=== PATIENT | male | born 1970 | race Caucasian/White ===

== ENCOUNTER 2022-03-06 16:36 | Inpatient (IN) | payer OTHER ==
[~2022-03-06] VITALS: Ht 182.9 cm; Wt 72.7 kg
[2022-03-06] MEDS ORDERED: SODIUM CHLORIDE 0.9% 1,000 ML IV ONE ×3 (17:00→20:15)
[2022-03-06 17:54] LABS: BASOPHILS % (AUTO) 0.2 % (0.0-2.0); EOSINOPHILS % (AUTO) 0.7 % (1.0-6.0); HEMATOCRIT 34.8 % (41-53); HEMOGLOBIN 11.6 g/dL (13.5-17.5); LYMPHOCYTES # (AUTO) 0.6 K/uL (1.0-4.8); LYMPHOCYTES % (AUTO) 5.5 % (22.0-44.0); MEAN CORPUSCULAR HEMOGLOBIN 36.2 pg (26.0-34.0); MEAN CORPUSCULAR HGB CONC 33.4 G/dL (31.0-37.0); MEAN CORPUSCULAR VOLUME 108 fL (80-100); MONOCYTES # (AUTO) 0.9 K/uL (0.1-1.0); MONOCYTES % (AUTO) 7.4 % (2.0-9.0); NEUTROPHILS # (AUTO) 10.3 K/uL (1.8-7.7); PLATELET COUNT (AUTO) 326 K/uL (150-450); RED BLOOD CELL COUNT(AUTO) 3.22 MIL/uL (4.50-5.90); RED CELL DISTRIBUTION WIDTH 14.8 % (11.5-14.5)
[2022-03-06 17:55] LABS: NEUTROPHILS % (AUTO) 86.2 % (40.0-70.0)
[2022-03-06 17:56] LABS: COVID AG,FIA SOURCE NASAL SWAB
[2022-03-06 18:08] LABS: ALBUMIN 1.6 g/dL (3.4-5.0); BILIRUBIN,TOTAL 1.6 mg/dL (0.1-1.0); CALCIUM, TOTAL 7.4 mg/dL (8.8-10.5); CREATININE 3.01 mg/dL (0.60-1.30); INR 1.2 (0.9-1.1); PROTHROMBIN TIME 12.5 SEC (9.4-11.6); TOTAL PROTEIN, SERUM 6.4 g/dL (6.4-8.2)
[2022-03-06 18:11] LABS: POTASSIUM 2.6 mmol/L (3.5-5.1)
[2022-03-06] MEDS ORDERED: POTASSIUM CHLORIDE 20 MEQ ER TABLET PO ONE (18:15)
[2022-03-06] MEDS ORDERED: CefTRIAXone 1 GM/DEXTROSE 50 ML IV ONE (18:15)
[2022-03-06] MEDS ORDERED: AZITHROMYCIN 500 MG/NS 250 ML IV ONE (18:15)
[2022-03-06 18:22] LABS: INFLUENZA TYPE A NEGATIVE FOR TYPE A (NEGATIVE); INFLUENZA TYPE B NEGATIVE FOR TYPE B (NEGATIVE)
[2022-03-06] MEDS ORDERED: SODIUM CHLORIDE 0.9% 1,000 ML IV SCH (19:15)
[2022-03-06] MEDS ORDERED: HALOPERIDOL LACTATE 5 MG/ML VIAL IM ONE (22:45)
[2022-03-06] MEDS ORDERED: LORazepam 2 MG/ML VIAL IVP ONE (22:45)
[2022-03-06] MEDS ORDERED: DiphenhydrAMINE HCL 50 MG/ML VIAL IVP ONE (22:45)
[2022-03-07] MEDS ORDERED: HEPARIN SODIUM,PORCINE 5,000 UNITS/ML VIAL SQ SCH
[2022-03-07] MEDS ORDERED: LORazepam 2 MG/ML VIAL IVP ONE (00:45)
[2022-03-07] MEDS ORDERED: LORazepam 2 MG TABLET PO PRN (00:45)
[2022-03-07] MEDS ORDERED: SODIUM CHLORIDE 0.9% 1,000 ML IV ONE (00:50)
[2022-03-07] MEDS ORDERED: PROPOFOL 1000 MG/ISO-OSM 100 ML ONE (00:58)
[2022-03-07] MEDS ORDERED: MIDAZOLAM HCL 2 MG/2 ML VIAL IM PRN (01:00)
[2022-03-07] MEDS: PROPOFOL 1000 MG/ISO-OSM 100 ML IV PRN ×3 (01:00→16:45)
[2022-03-07] MEDS ORDERED: PANTOPRAZOLE SODIUM 40 MG/VIAL IVP ONE (01:15)
[2022-03-07 01:16] LABS: BASOPHILS % (AUTO) 0.1 % (0.0-2.0); EOSINOPHILS % (AUTO) 0.1 % (1.0-6.0); HEMATOCRIT 31.6 % (41-53); HEMOGLOBIN 10.7 g/dL (13.5-17.5); LYMPHOCYTES # (AUTO) 0.9 K/uL (1.0-4.8); LYMPHOCYTES % (AUTO) 5.8 % (22.0-44.0); MEAN CORPUSCULAR HEMOGLOBIN 36.7 pg (26.0-34.0); MEAN CORPUSCULAR HGB CONC 33.9 G/dL (31.0-37.0); MEAN CORPUSCULAR VOLUME 108 fL (80-100); MONOCYTES # (AUTO) 1.5 K/uL (0.1-1.0); MONOCYTES % (AUTO) 9.7 % (2.0-9.0); NEUTROPHILS # (AUTO) 12.7 K/uL (1.8-7.7); NEUTROPHILS % (AUTO) 84.3 % (40.0-70.0); PLATELET COUNT (AUTO) 333 K/uL (150-450); RED BLOOD CELL COUNT(AUTO) 2.92 MIL/uL (4.50-5.90)
[2022-03-07 01:25] LABS: CALCIUM, TOTAL 6.8 mg/dL (8.8-10.5); CREATININE 2.77 mg/dL (0.60-1.30); POTASSIUM 3.2 mmol/L (3.5-5.1)
[2022-03-07 01:27] LABS: ABG BASE EXCESS -8.9 mmol/L (-2.0-3.0); ABG CARBOXYHEMOGLOBIN 0.3 % (0.0-1.5); ABG HCO3 17.7 mmol/L (22.0-26.0); ABG METHEMOGLOBIN 0.4 % (0.0-1.5); ABG OXYGEN SATURATION 90.6 % (95.0-98.0); ABG PCO2 38 mmHg (35-45); ABG PH 7.286 (7.35-7.450); PO2, ARTERIAL BG 72.2 mmHg (88.0-96.0); SOURCE, BLOOD GAS ARTERIAL; TEMPERATURE, FAHRENHEIT, BG 98.6 FAHREN (96.0-98.6)
[2022-03-07 01:28] LABS: O2 DEVICE,BLOOD GAS VENTILATOR (ROOM AIR); PEEP,BG 5 cm H2O; SITE, BLOOD GAS RT BRACHIAL; SPONTANEOUS VT, BG 432 ml; VT, ABG 450 ml
[2022-03-07 01:30] LABS: ALBUMIN 1.4 g/dL (3.4-5.0); BILIRUBIN,DIRECT 0.9 mg/dL (0.00-0.20); BILIRUBIN,TOTAL 1.1 mg/dL (0.1-1.0); TOTAL PROTEIN, SERUM 5.6 g/dL (6.4-8.2)
[2022-03-07] MEDS: NOREPINEPHRINE 8 MG/D5%-WATER 250 ML IV PRN ×2 (01:41→10:39)
[2022-03-07] MEDS: ONDANSETRON HCL 4 MG/2 ML VIAL IVP PRN (01:49)
[2022-03-07] MEDS: FentaNYL CIT 1000MCG/0.9% NACL 100 ML IV PRN ×4 (02:12→18:40)
[2022-03-07] MEDS: PANTOPRAZOLE SODIUM 80 MG in SODIUM CHLORIDE 0.9% 100 ML IV SCH ×3 (03:23→23:12)
[2022-03-07 03:25] LABS: APPEARANCE,URINE HAZY (CLEAR); GLUCOSE, URINE (UA) NEGATIVE (NEGATIVE); KETONES,URINE NEGATIVE (NEGATIVE); LEUKOCYTE ESTERASE ,URINE NEGATIVE (NEGATIVE); NITRATE,URINE NEGATIVE (NEGATIVE); OCCULT BLOOD,URINE NEGATIVE (NEGATIVE); PROTEIN,URINE 30-70 mg/dL (NEGATIVE); SPECIFIC GRAVITIY, URINE 1.027 (1.003-1.030)
[2022-03-07 03:27] LABS: CREATININE,URINE RANDOM 364.6 mg/dL (30.0-125.0)
[2022-03-07] MEDS: 1: MAGNESIUM SULFATE 2 GM, MVI, ADULT NO.1 WITH VIT K 10 ML, THIAMINE 100 MG, FOLIC ACID IV SCH ×10 (03:30→16:48)
[2022-03-07 03:31] LABS: AMPHET/METH SCREEN,URINE NEGATIVE (NEGATIVE); BARBITURATE SCREEN, URINE NEGATIVE (NEGATIVE); BENZODIAZEPINES SCREEN,URINE POSITIVE (NEGATIVE); CANNABINOID SCREEN,URINE POSITIVE (NEGATIVE); COCAINE SCREEN,URINE NEGATIVE (NEGATIVE); METHADONE SCREEN, URINE NEGATIVE (NEGATIVE); OPIATE SCREEN,URINE NEGATIVE (NEGATIVE)
[2022-03-07 03:35] LABS: BILIRUBIN,URINE SMALL (NEGATIVE); PHENCYCLIDINE SCREEN,URINE NEGATIVE (NEGATIVE)
[2022-03-07] MEDS: POTASSIUM CHL 10 MEQ/WATER 50 ML IV SCH ×3 (03:36→05:28)
[2022-03-07 03:57] LABS: RBC,URINE None Seen /HPF (0-2)
[2022-03-07 04:00] LABS: BACTERIA,URINE Few /HPF (None Seen)
[2022-03-07 06:57] LABS: ALBUMIN 1.2 g/dL (3.4-5.0); BILIRUBIN,TOTAL 0.9 mg/dL (0.1-1.0); CALCIUM, TOTAL 6.4 mg/dL (8.8-10.5); CREATININE 2.31 mg/dL (0.60-1.30); MAGNESIUM 1.2 mg/dL (1.80-2.40); PHOSPHORUS 2.6 mg/dL (2.5-4.9); TOTAL PROTEIN, SERUM 5.2 g/dL (6.4-8.2)
[2022-03-07 07:38] LABS: ABG BASE EXCESS -5.9 mmol/L (-2.0-3.0); ABG CARBOXYHEMOGLOBIN 0.2 % (0.0-1.5); ABG HCO3 20.3 mmol/L (22.0-26.0); ABG METHEMOGLOBIN 0.3 % (0.0-1.5); ABG OXYHEMOGLOBIN 98.5 % (94.0-100.0); ABG PCO2 34 mmHg (35-45); ABG PH 7.373 (7.35-7.450); PO2, ARTERIAL BG 162.6 mmHg (88.0-96.0); SITE, BLOOD GAS LFT BRACHIAL; SOURCE, BLOOD GAS ARTERIAL; TEMPERATURE, FAHRENHEIT, BG 97.5 FAHREN (96.0-98.6)
[2022-03-07 07:39] LABS: ABG A-A DIFF O2 517.8 mmHg (10-20.0); O2 DEVICE,BLOOD GAS VENTILATOR (ROOM AIR); PEEP,BG 5 cm H2O; VT, ABG 450 ml
[2022-03-07] MEDS: CHLORHEXIDINE GLUCONATE 0.12% 15 ML UDCUP ORAL RINSE MM SCH ×2 (09:00→23:10)
[2022-03-07] MEDS ORDERED: LORazepam 2 MG/ML VIAL IVP PRN (09:30)
[2022-03-07] MEDS ORDERED: MAGNESIUM SULFATE 1 GM in DEXTROSE 5%-WATER 50 ML IV ONE (10:30)
[2022-03-07 13:05] LABS: ALBUMIN 1.2 g/dL (3.4-5.0); CALCIUM, TOTAL 6.6 mg/dL (8.8-10.5); CREATININE 1.71 mg/dL (0.60-1.30); MAGNESIUM 2.3 mg/dL (1.80-2.40); PHOSPHORUS 2.3 mg/dL (2.5-4.9); POTASSIUM 3.6 mmol/L (3.5-5.1); TOTAL PROTEIN, SERUM 5.2 g/dL (6.4-8.2)
[2022-03-07 13:28] LABS: ABG A-A DIFF O2 471.5 mmHg (10-20.0); ABG BASE EXCESS -11.8 mmol/L (-2.0-3.0); ABG CARBOXYHEMOGLOBIN 0.3 % (0.0-1.5); ABG METHEMOGLOBIN 0.2 % (0.0-1.5); ABG OXYGEN CONTENT 17.2 mL/dL (15.0-23.0); ABG OXYGEN SATURATION 92.5 % (95.0-98.0); ABG PCO2 25 mmHg (35-45); ABG PH 7.368 (7.35-7.450); ABG TOTAL HEMOGLOBIN 13.3 G/dL (12.0-18.0); O2 DEVICE,BLOOD GAS VENTILATOR (ROOM AIR); PEEP,BG 5 cm H2O; SITE, BLOOD GAS LFT BRACHIAL; SOURCE, BLOOD GAS ARTERIAL; TEMPERATURE, FAHRENHEIT, BG 86.5 FAHREN (96.0-98.6); VT, ABG 450 ml
[2022-03-07] MEDS ORDERED: VANCOMYCIN HCL 1.25 GM in DEXTROSE 5%-WATER 250 ML IV ONE (14:30)
[2022-03-07] MEDS ORDERED: PROPOFOL 1000 MG/ISO-OSM 100 ML IV PRN (15:45)
[2022-03-07] MEDS: CefTRIAXone 1 GM/DEXTROSE 50 ML IV SCH (17:35)
[2022-03-07 18:49] LABS: ALANINE AMINOTRANSFERASE 43 U/L (12-78); ALBUMIN 1.1 g/dL (3.4-5.0); ALKALINE PHOSPHATASE 46 U/L (46-116); ANION GAP 15 mmol/L (8-16); ASPARTATE AMINOTRANSFERASE 136 U/L (15-37); CALCIUM, TOTAL 6.5 mg/dL (8.8-10.5); CARBON DIOXIDE 18 mmol/L (22-29); CHLORIDE 108 mmol/L (98-107); GLOMERULAR FILTR. RATE CALC 46 mL/min (>60); GLUCOSE,RANDOM 192 mg/dL (70-110); SODIUM SERUM 141 mmol/L (136-145); TOTAL PROTEIN, SERUM 4.7 g/dL (6.4-8.2); UREA NITROGEN, BLOOD 55 mg/dL (7-18)
[2022-03-07 18:52] LABS: ACETAMINOPHEN < 2 mcg/mL (10-30); POTASSIUM 2.8 mmol/L (3.5-5.1)
[2022-03-07] MEDS ORDERED: AZITHROMYCIN 500 MG/NS 250 ML IV SCH (19:00)
[2022-03-07] MEDS: VANCOMYCIN HCL 500 MG in DEXTROSE 5%-WATER 100 ML IV SCH (20:11)
[2022-03-07 21:55] VITALS: BP 79/41
[2022-03-08] VITALS: BP 97/67
[2022-03-08] MEDS: FentaNYL CIT 1000MCG/0.9% NACL 100 ML IV PRN ×2 (00:24→08:25)
[2022-03-08] MEDS: NOREPINEPHRINE 8 MG/D5%-WATER 250 ML IV PRN ×3 (00:25→22:38)
[2022-03-08 01:35] LABS: ALBUMIN 1.3 g/dL (3.4-5.0); BILIRUBIN,TOTAL 1.4 mg/dL (0.1-1.0); CALCIUM, TOTAL 6.4 mg/dL (8.8-10.5); CREATININE 1.59 mg/dL (0.60-1.30); MAGNESIUM 1.9 mg/dL (1.80-2.40); PHOSPHORUS 2.9 mg/dL (2.5-4.9); POTASSIUM 3.6 mmol/L (3.5-5.1); TOTAL PROTEIN, SERUM 4.7 g/dL (6.4-8.2)
[2022-03-08 02:40] LABS: ABG BASE EXCESS -7.7 mmol/L (-2.0-3.0); ABG CARBOXYHEMOGLOBIN 0.3 % (0.0-1.5); ABG HCO3 18.7 mmol/L (22.0-26.0); ABG METHEMOGLOBIN 0.3 % (0.0-1.5); ABG OXYGEN CONTENT 17.6 mL/dL (15.0-23.0); ABG OXYGEN SATURATION 97.8 % (95.0-98.0); ABG OXYHEMOGLOBIN 97.2 % (94.0-100.0); ABG PCO2 38 mmHg (35-45); ABG PH 7.311 (7.35-7.450); ABG TOTAL HEMOGLOBIN 12.8 G/dL (12.0-18.0); PO2, ARTERIAL BG 103.1 mmHg (88.0-96.0); SOURCE, BLOOD GAS ARTERIAL; TEMPERATURE, FAHRENHEIT, BG 95.9 FAHREN (96.0-98.6)
[2022-03-08 02:43] LABS: O2 DEVICE,BLOOD GAS VENTILATOR (ROOM AIR); PEEP,BG 5 cm H2O; SITE, BLOOD GAS LFT BRACHIAL; VT, ABG 450 ml
[2022-03-08 02:47] LABS: APPEARANCE,URINE TURBID (CLEAR); BILIRUBIN,URINE NEGATIVE (NEGATIVE); GLUCOSE, URINE (UA) TRACE mg/dL (NEGATIVE); KETONES,URINE NEGATIVE (NEGATIVE); LEUKOCYTE ESTERASE ,URINE NEGATIVE (NEGATIVE); NITRATE,URINE NEGATIVE (NEGATIVE); OCCULT BLOOD,URINE SMALL (NEGATIVE); PROTEIN,URINE 30-70 mg/dL (NEGATIVE); SPECIFIC GRAVITIY, URINE 1.017 (1.003-1.030)
[2022-03-08 02:50] LABS: CREATININE,URINE RANDOM 70.8 mg/dL (30.0-125.0)
[2022-03-08 02:51] LABS: SODIUM,URINE RANDOM 32 mmol/l (20-110); UREA NITROGEN,URINE RANDOM 884 mg/dL (350-1000)
[2022-03-08 03:00] LABS: BACTERIA,URINE None Seen /HPF (None Seen); WBC,URINE 0-2 /HPF (0-5)
[2022-03-08 03:21] LABS: GLUCOSE,POINT OF CARE 96 MG/DL (70-110)
[2022-03-08 04:00] VITALS: BP 96/57
[2022-03-08] MEDS ORDERED: SODIUM CHLORIDE 0.9% 250 ML IV ONE (04:37)
[2022-03-08] MEDS: 1: MAGNESIUM SULFATE 2 GM, MVI, ADULT NO.1 WITH VIT K 10 ML, THIAMINE 100 MG, FOLIC ACID IV SCH ×5 (04:47)
[2022-03-08] MEDS ORDERED: CLINDAMYCIN 600 MG/D5% WATER 50 ML IV ONE (06:00)
[2022-03-08] MEDS: PHENYLEPHRINE 200 MG/D5%-WATER 250 ML IV PRN ×2 (06:24→20:46)
[2022-03-08 06:41] LABS: GLUCOMETER DEV NAME(LOC) AHU.; GLUCOSE,POINT OF CARE 86 MG/DL (70-110)
[2022-03-08 06:49] LABS: BASOPHILS % (AUTO) 0.1 % (0.0-2.0); HEMATOCRIT 40.2 % (41-53); HEMOGLOBIN 13.4 g/dL (13.5-17.5); LYMPHOCYTES # (AUTO) 0.4 K/uL (1.0-4.8); LYMPHOCYTES % (AUTO) 3.9 % (22.0-44.0); MEAN CORPUSCULAR HGB CONC 33.3 G/dL (31.0-37.0); MEAN CORPUSCULAR VOLUME 111 fL (80-100); MONOCYTES # (AUTO) 0.2 K/uL (0.1-1.0); MONOCYTES % (AUTO) 2.1 % (2.0-9.0); NEUTROPHILS # (AUTO) 9.6 K/uL (1.8-7.7); PLATELET COUNT (AUTO) 400 K/uL (150-450); RED BLOOD CELL COUNT(AUTO) 3.62 MIL/uL (4.50-5.90); RED CELL DISTRIBUTION WIDTH 15.7 % (11.5-14.5)
[2022-03-08 06:51] LABS: NEUTROPHILS % (AUTO) 92.9 % (40.0-70.0)
[2022-03-08 07:00] LABS: INR 1.2 (0.9-1.1); PROTHROMBIN TIME 12.3 SEC (9.4-11.6)
[2022-03-08] MEDS ORDERED: LORazepam 2 MG TABLET PO PRN (07:00)
[2022-03-08 07:01] LABS: CREATININE 1.62 mg/dL (0.60-1.30); PHOSPHORUS 2.8 mg/dL (2.5-4.9); POTASSIUM 3.2 mmol/L (3.5-5.1)
[2022-03-08 08:00] VITALS: BP 89/55
[2022-03-08] MEDS ORDERED: POTASSIUM CHLORIDE 10% 40 MEQ/30 ML LIQUID UDCUP NG ONE (08:00)
[2022-03-08] MEDS: VANCOMYCIN HCL 500 MG in DEXTROSE 5%-WATER 100 ML IV SCH (08:23)
[2022-03-08] MEDS: PANTOPRAZOLE SODIUM 80 MG in SODIUM CHLORIDE 0.9% 100 ML IV SCH ×2 (08:30→19:53)
[2022-03-08] MEDS ORDERED: LORazepam 2 MG TABLET PO SCH (09:00)
[2022-03-08] MEDS ORDERED: POTASSIUM CHL 10 MEQ/WATER 50 ML IV ONE (09:15)
[2022-03-08] MEDS: SODIUM CHLORIDE 0.9% 1,000 ML IV SCH ×2 (09:19→13:00)
[2022-03-08] MEDS: CHLORHEXIDINE GLUCONATE 0.12% 15 ML UDCUP ORAL RINSE MM SCH ×2 (09:28→20:46)
[2022-03-08] MEDS: LevETIRAcetam 500 MG in DEXTROSE 5%-WATER 100 ML IV SCH ×2 (10:30→22:33)
[2022-03-08 12:00] VITALS: BP 97/48
[2022-03-08] MEDS: ACETAMINOPHEN 325 MG TABLET PO PRN (12:32)
[2022-03-08] MEDS ORDERED: DEXTROSE 50%-WATER 25 GM/50 ML SYRINGE IVP ONE (13:41)
[2022-03-08] MEDS ORDERED: INSULIN LISPRO 100 UNITS/ML SQ PRN (14:00)
[2022-03-08] MEDS ORDERED: DEXTROSE 50%-WATER 25 GM/50 ML SYRINGE IVP PRN (14:00)
[2022-03-08 14:03] LABS: ABG BASE EXCESS -9.3 mmol/L (-2.0-3.0); ABG CARBOXYHEMOGLOBIN 0.3 % (0.0-1.5); ABG HCO3 17.6 mmol/L (22.0-26.0); ABG METHEMOGLOBIN 0.3 % (0.0-1.5); ABG OXYGEN CONTENT 15.5 mL/dL (15.0-23.0); ABG OXYGEN SATURATION 95.2 % (95.0-98.0); ABG OXYHEMOGLOBIN 94.6 % (94.0-100.0); ABG PCO2 37 mmHg (35-45); ABG PH 7.288 (7.35-7.450); ABG TOTAL HEMOGLOBIN 11.6 G/dL (12.0-18.0); PO2, ARTERIAL BG 87.8 mmHg (88.0-96.0); SOURCE, BLOOD GAS ARTERIAL; TEMPERATURE, FAHRENHEIT, BG 100.9 FAHREN (96.0-98.6)
[2022-03-08 14:06] LABS: ABG A-A DIFF O2 512.9 mmHg (10-20.0); O2 DEVICE,BLOOD GAS VENTILATOR (ROOM AIR); PEEP,BG 8 cm H2O; SITE, BLOOD GAS LFT BRACHIAL; VT, ABG 450 ml
[2022-03-08 14:07] LABS: SPONTANEOUS VT, BG 580 ml
[2022-03-08 16:00] VITALS: BP 94/56
[2022-03-08] MEDS ORDERED: HEPARIN SODIUM,PORCINE 1,000 UNITS/ML VIAL ONE (17:18)
[2022-03-08] MEDS ORDERED: EPINEPHrine 1:10,000 [1 MG/10 ML] SYRINGE IVP ONE (17:23)
[2022-03-08] MEDS ORDERED: 0.9% SODIUM CHLORIDE 1,000 ML BAG IV ONE (17:23)
[2022-03-08 17:28] LABS: CALCIUM, TOTAL 6.5 mg/dL (8.8-10.5); CREATININE 1.88 mg/dL (0.60-1.30); POTASSIUM 3.5 mmol/L (3.5-5.1)
[2022-03-08 18:06] LABS: LEGIONELLA PNEUMO AG URINE Negative (Negative); S PNEUMO SOURCE Urine; STREP PNEUMONIAE AG URINE Positive (Negative)
[2022-03-08] MEDS: PROPOFOL 1000 MG/ISO-OSM 100 ML IV PRN (18:11)
[2022-03-08] MEDS: CefTRIAXone 1 GM/DEXTROSE 50 ML IV SCH (18:15)
[2022-03-08] MEDS: DEXTROSE 5%-0.9% SODIUM CHL 1,000 ML IV SCH (19:48)
[2022-03-08] MEDS: VANCOMYCIN HCL 750 MG in DEXTROSE 5%-WATER 250 ML IV SCH (19:53)
[2022-03-08 20:00] VITALS: BP 93/52
[2022-03-09] VITALS: BP 108/65
[2022-03-09 00:41] LABS: GLUCOMETER DEV NAME(LOC) AHU.; GLUCOSE,POINT OF CARE 103 MG/DL (70-110)
[2022-03-09 00:41] LABS: GLUCOMETER DEV NAME(LOC) AHU.; GLUCOSE,POINT OF CARE 144 MG/DL (70-110)
[2022-03-09 00:41] LABS: GLUCOMETER DEV NAME(LOC) AHU.; GLUCOSE,POINT OF CARE 68 MG/DL (70-110)
[2022-03-09] MEDS: FentaNYL CIT 1000MCG/0.9% NACL 100 ML IV PRN ×2 (01:31→19:31)
[2022-03-09 01:51] LABS: GLUCOSE,POINT OF CARE 116 MG/DL (70-110)
[2022-03-09 04:00] VITALS: BP 118/71
[2022-03-09] MEDS ORDERED: SODIUM CHLORIDE 0.9% 250 ML IV ONE (04:35)
[2022-03-09] MEDS: PROPOFOL 1000 MG/ISO-OSM 100 ML IV PRN (04:38)
[2022-03-09] MEDS: DEXTROSE 5%-0.9% SODIUM CHL 1,000 ML IV SCH ×2 (05:10→15:58)
[2022-03-09] MEDS: PANTOPRAZOLE SODIUM 80 MG in SODIUM CHLORIDE 0.9% 100 ML IV SCH ×2 (05:10→16:03)
[2022-03-09] MEDS: NOREPINEPHRINE 8 MG/D5%-WATER 250 ML IV PRN ×3 (05:11→19:30)
[2022-03-09 06:20] LABS: HEMATOCRIT 31.7 % (41-53); HEMOGLOBIN 10.6 g/dL (13.5-17.5); MEAN CORPUSCULAR HEMOGLOBIN 36.7 pg (26.0-34.0); MEAN CORPUSCULAR HGB CONC 33.5 G/dL (31.0-37.0); MEAN CORPUSCULAR VOLUME 110 fL (80-100); PLATELET COUNT (AUTO) 317 K/uL (150-450); RED BLOOD CELL COUNT(AUTO) 2.89 MIL/uL (4.50-5.90); RED CELL DISTRIBUTION WIDTH 15.6 % (11.5-14.5)
[2022-03-09 06:32] LABS: BILIRUBIN,TOTAL 0.9 mg/dL (0.1-1.0); CALCIUM, TOTAL 6.5 mg/dL (8.8-10.5); CREATININE 2.13 mg/dL (0.60-1.30); MAGNESIUM 1.5 mg/dL (1.80-2.40); PHOSPHORUS 2.8 mg/dL (2.5-4.9); POTASSIUM 3.2 mmol/L (3.5-5.1); TOTAL PROTEIN, SERUM 4.7 g/dL (6.4-8.2)
[2022-03-09] MEDS: PHENYLEPHRINE 200 MG/D5%-WATER 250 ML IV PRN (07:12)
[2022-03-09 08:00] VITALS: BP 122/74
[2022-03-09 08:01] LABS: BAND NEUTROPHILS % (MANUAL) 37 % (0-5); LYMPHOCYTES % (MANUAL) 9 % (22-44); MONOCYTES % (MANUAL) 1 % (2-9); SEGMENTED NEUTROPHILS % 53 % (40-70)
[2022-03-09] MEDS ORDERED: MAGNESIUM OXIDE 400 MG TABLET NG ONE (08:15)
[2022-03-09] MEDS ORDERED: MAGNESIUM SULFATE 1 GM in DEXTROSE 5%-WATER 50 ML IV ONE (08:15)
[2022-03-09] MEDS ORDERED: POTASSIUM CHL 10 MEQ/WATER 50 ML IV ONE (08:15)
[2022-03-09] MEDS ORDERED: POTASSIUM CHLORIDE 10% 40 MEQ/30 ML LIQUID UDCUP NG ONE (08:15)
[2022-03-09] MEDS: CHLORHEXIDINE GLUCONATE 0.12% 15 ML UDCUP ORAL RINSE MM SCH ×2 (08:41→21:59)
[2022-03-09] MEDS: ETHYL ALCOHOL 62% ANTISEPTIC NASAL SANITIZER 0.6 ML AMPUL NASAL SCH ×2 (08:41→21:59)
[2022-03-09] MEDS: VANCOMYCIN HCL 750 MG in DEXTROSE 5%-WATER 250 ML IV SCH (08:43)
[2022-03-09 08:47] LABS: GLUCOMETER DEV NAME(LOC) AHU.; GLUCOSE,POINT OF CARE 116 MG/DL (70-110)
[2022-03-09] MEDS: LevETIRAcetam 500 MG in DEXTROSE 5%-WATER 100 ML IV SCH ×2 (09:43→22:00)
[2022-03-09] MEDS ORDERED: VANCOMYCIN 1GM/WATER(PEG/NADA) 200 ML IV PRN (10:30)
[2022-03-09 12:00] VITALS: BP 105/63
[2022-03-09 13:07] LABS: GLUCOMETER DEV NAME(LOC) AHU.; GLUCOSE,POINT OF CARE 106 MG/DL (70-110)
[2022-03-09 16:00] VITALS: BP_SYST 114; BP_SYST 122; BP_DIAS 69; BP_DIAS 74
[2022-03-09] MEDS: CefTRIAXone 1 GM/DEXTROSE 50 ML IV SCH (18:03)
[2022-03-09 20:00] VITALS: BP 101/58
[2022-03-09 20:01] LABS: CALCIUM, TOTAL 6.5 mg/dL (8.8-10.5); CREATININE 2.07 mg/dL (0.60-1.30); MAGNESIUM 1.5 mg/dL (1.80-2.40); PHOSPHORUS 2.7 mg/dL (2.5-4.9); POTASSIUM 3.4 mmol/L (3.5-5.1)
[2022-03-10] VITALS: BP 107/63
[2022-03-10] MEDS ORDERED: MAGNESIUM SULFATE 1 GM in DEXTROSE 5%-WATER 50 ML IV ONE (01:00)
[2022-03-10 04:00] VITALS: BP 98/61
[2022-03-10] MEDS: PHENYLEPHRINE 200 MG/D5%-WATER 250 ML IV PRN ×2 (04:31→17:19)
[2022-03-10] MEDS: DEXTROSE 5%-0.9% SODIUM CHL 1,000 ML IV SCH (04:32)
[2022-03-10] MEDS: NOREPINEPHRINE 8 MG/D5%-WATER 250 ML IV PRN ×3 (04:43→20:38)
[2022-03-10] MEDS: PANTOPRAZOLE SODIUM 80 MG in SODIUM CHLORIDE 0.9% 100 ML IV SCH (05:33)
[2022-03-10] MEDS ORDERED: LORazepam 1 MG TABLET PO PRN (07:00)
[2022-03-10 07:06] LABS: GLUCOSE,POINT OF CARE 96 MG/DL (70-110)
[2022-03-10 07:06] LABS: GLUCOSE,POINT OF CARE 97 MG/DL (70-110)
[2022-03-10 07:47] LABS: BASOPHILS % (AUTO) 0.3 % (0.0-2.0); EOSINOPHILS % (AUTO) 0.7 % (1.0-6.0); HEMATOCRIT 34.3 % (41-53); HEMOGLOBIN 11.3 g/dL (13.5-17.5); LYMPHOCYTES # (AUTO) 0.5 K/uL (1.0-4.8); LYMPHOCYTES % (AUTO) 1.9 % (22.0-44.0); MEAN CORPUSCULAR HEMOGLOBIN 36.3 pg (26.0-34.0); MEAN CORPUSCULAR HGB CONC 32.9 G/dL (31.0-37.0); MEAN CORPUSCULAR VOLUME 110 fL (80-100); MONOCYTES # (AUTO) 0.7 K/uL (0.1-1.0); MONOCYTES % (AUTO) 2.8 % (2.0-9.0); NEUTROPHILS # (AUTO) 23.7 K/uL (1.8-7.7); PLATELET COUNT (AUTO) 267 K/uL (150-450); RED BLOOD CELL COUNT(AUTO) 3.11 MIL/uL (4.50-5.90); RED CELL DISTRIBUTION WIDTH 15.7 % (11.5-14.5)
[2022-03-10 07:53] LABS: NEUTROPHILS % (AUTO) 94.3 % (40.0-70.0)
[2022-03-10 08:00] VITALS: BP 88/49
[2022-03-10] MEDS: CHLORHEXIDINE GLUCONATE 0.12% 15 ML UDCUP ORAL RINSE MM SCH ×2 (08:39→21:59)
[2022-03-10] MEDS: ETHYL ALCOHOL 62% ANTISEPTIC NASAL SANITIZER 0.6 ML AMPUL NASAL SCH ×2 (08:39→21:59)
[2022-03-10] MEDS: PROPOFOL 1000 MG/ISO-OSM 100 ML IV PRN ×2 (08:40→20:29)
[2022-03-10 08:45] LABS: CALCIUM, TOTAL 7.1 mg/dL (8.8-10.5); CREATININE 2.07 mg/dL (0.60-1.30); MAGNESIUM 1.6 mg/dL (1.80-2.40); PHOSPHORUS 3.4 mg/dL (2.5-4.9); POTASSIUM 3.7 mmol/L (3.5-5.1); VANCOMYCIN,RANDOM 19.6 mcg/mL (25.0-50.0)
[2022-03-10] MEDS ORDERED: LORazepam 1 MG TABLET PO SCH (09:00)
[2022-03-10] MEDS: ACETAMINOPHEN 325 MG TABLET PO PRN (09:35)
[2022-03-10] MEDS: LevETIRAcetam 500 MG in DEXTROSE 5%-WATER 100 ML IV SCH ×2 (09:35→22:00)
[2022-03-10] MEDS: METOCLOPRAMIDE HCL 5 MG/ML 2 ML VIAL IVP SCH ×2 (10:25→21:59)
[2022-03-10] MEDS ORDERED: VANCOMYCIN 1GM/WATER(PEG/NADA) 200 ML IV ONE (11:15)
[2022-03-10] MEDS: ALBUMIN HUMAN 25%-12.5GM/50ML 50 ML IV SCH ×3 (11:21→23:45)
[2022-03-10 12:00] VITALS: BP 111/71
[2022-03-10] MEDS: FentaNYL CIT 1000MCG/0.9% NACL 100 ML IV PRN ×2 (12:35→20:37)
[2022-03-10] MEDS ORDERED: MAGNESIUM SULFATE 2 GM/WATER 50 ML IV ONE (12:45)
[2022-03-10] MEDS: SODIUM BICARBONATE 75 MEQ in DEXTROSE 5%-WATER 1,000 ML IV SCH (13:47)
[2022-03-10 16:00] VITALS: BP 94/58
[2022-03-10] MEDS: VASOPRESSIN 40 UNITS in DEXTROSE 5%-WATER 98 ML IV PRN (17:16)
[2022-03-10] MEDS: CefTRIAXone 1 GM/DEXTROSE 50 ML IV SCH (17:17)
[2022-03-10 20:00] VITALS: BP 123/76
[2022-03-10] MEDS: PANTOPRAZOLE SODIUM 40 MG/VIAL IVP SCH (21:59)
[2022-03-10] MEDS ORDERED: SODIUM CHLORIDE 0.9% 250 ML IV ONE (22:08)
[2022-03-10 23:56] LABS: GLUCOSE,POINT OF CARE 74 MG/DL (70-110)
[2022-03-11] VITALS: BP 92/58
[2022-03-11 00:46] LABS: GLUCOSE,POINT OF CARE 117 MG/DL (70-110)
[2022-03-11 00:46] LABS: GLUCOSE,POINT OF CARE 150 MG/DL (70-110)
[2022-03-11 00:46] LABS: GLUCOSE,POINT OF CARE 65 MG/DL (70-110)
[2022-03-11 04:00] VITALS: BP 97/64
[2022-03-11] MEDS: PROPOFOL 1000 MG/ISO-OSM 100 ML IV PRN (05:19)
[2022-03-11] MEDS: NOREPINEPHRINE 8 MG/D5%-WATER 250 ML IV PRN ×3 (05:19→19:15)
[2022-03-11 05:44] LABS: BASOPHILS % (AUTO) 0.2 % (0.0-2.0); HEMATOCRIT 28.9 % (41-53); HEMOGLOBIN 9.6 g/dL (13.5-17.5); LYMPHOCYTES # (AUTO) 0.5 K/uL (1.0-4.8); MEAN CORPUSCULAR HEMOGLOBIN 35.7 pg (26.0-34.0); MEAN CORPUSCULAR HGB CONC 33.1 G/dL (31.0-37.0); MEAN CORPUSCULAR VOLUME 108 fL (80-100); MONOCYTES # (AUTO) 0.2 K/uL (0.1-1.0); MONOCYTES % (AUTO) 0.8 % (2.0-9.0); NEUTROPHILS # (AUTO) 24.9 K/uL (1.8-7.7); PLATELET COUNT (AUTO) 189 K/uL (150-450); RED BLOOD CELL COUNT(AUTO) 2.68 MIL/uL (4.50-5.90); RED CELL DISTRIBUTION WIDTH 15.5 % (11.5-14.5)
[2022-03-11] MEDS: ALBUMIN HUMAN 25%-12.5GM/50ML 50 ML IV SCH ×4 (05:57→23:15)
[2022-03-11 06:01] LABS: ALBUMIN 1.2 g/dL (3.4-5.0); BILIRUBIN,TOTAL 1.3 mg/dL (0.1-1.0); C-REACTIVE PROTEIN QUANT 19.8 mg/dL (0.00-0.30); CALCIUM, TOTAL 7.3 mg/dL (8.8-10.5); CREATININE 1.88 mg/dL (0.60-1.30); MAGNESIUM 1.6 mg/dL (1.80-2.40); PHOSPHORUS 4.8 mg/dL (2.5-4.9); POTASSIUM 3.4 mmol/L (3.5-5.1); TOTAL PROTEIN, SERUM 4.2 g/dL (6.4-8.2)
[2022-03-11 06:06] LABS: GLUCOSE,POINT OF CARE 106 MG/DL (70-110)
[2022-03-11 06:06] LABS: GLUCOSE,POINT OF CARE 105 MG/DL (70-110)
[2022-03-11] MEDS ORDERED: LORazepam 1 MG TABLET PO PRN (07:00)
[2022-03-11 08:00] VITALS: BP 106/67
[2022-03-11] MEDS ORDERED: MAGNESIUM SULFATE 2 GM/WATER 50 ML IV ONE (08:15)
[2022-03-11] MEDS: LevETIRAcetam 500 MG in DEXTROSE 5%-WATER 100 ML IV SCH ×2 (08:42→22:15)
[2022-03-11] MEDS: VANCOMYCIN 1GM/WATER(PEG/NADA) 200 ML IV SCH (08:42)
[2022-03-11] MEDS: ETHYL ALCOHOL 62% ANTISEPTIC NASAL SANITIZER 0.6 ML AMPUL NASAL SCH ×2 (08:45→20:57)
[2022-03-11] MEDS: PANTOPRAZOLE SODIUM 40 MG/VIAL IVP SCH ×2 (08:45→20:56)
[2022-03-11] MEDS: CHLORHEXIDINE GLUCONATE 0.12% 15 ML UDCUP ORAL RINSE MM SCH ×2 (08:45→20:55)
[2022-03-11] MEDS: METOCLOPRAMIDE HCL 5 MG/ML 2 ML VIAL IVP SCH ×2 (08:45→20:56)
[2022-03-11] MEDS ORDERED: SODIUM CHLORIDE 0.9% 250 ML IV ONE ×2 (08:50→23:12)
[2022-03-11] MEDS: VASOPRESSIN 40 UNITS in DEXTROSE 5%-WATER 98 ML IV PRN (09:02)
[2022-03-11] MEDS: SODIUM BICARBONATE 75 MEQ in DEXTROSE 5%-WATER 1,000 ML IV SCH (10:55)
[2022-03-11] MEDS: MetroNIDAZOLE 500 MG/NACL 100 ML IV SCH ×2 (10:55→17:42)
[2022-03-11] MEDS: AZITHROMYCIN 500 MG/NS 250 ML IV SCH (11:17)
[2022-03-11 12:00] VITALS: BP 95/57
[2022-03-11] MEDS: HYDROCORTISONE SOD SUCC 100 MG/2 ML VIAL IVP SCH ×3 (12:22→23:16)
[2022-03-11 16:00] VITALS: BP 105/64
[2022-03-11] MEDS: CefTRIAXone SODIUM 2 GM in DEXTROSE 5%-WATER 50 ML IV SCH (17:42)
[2022-03-11 18:42] LABS: CALCIUM, TOTAL 7.6 mg/dL (8.8-10.5); CREATININE 1.79 mg/dL (0.60-1.30); MAGNESIUM 1.8 mg/dL (1.80-2.40); PHOSPHORUS 5.1 mg/dL (2.5-4.9); POTASSIUM 3.4 mmol/L (3.5-5.1)
[2022-03-11 20:00] VITALS: BP 116/72
[2022-03-11] MEDS: ACETAMINOPHEN 325 MG TABLET PO PRN (20:56)
[2022-03-11 23:36] LABS: GLUCOSE,POINT OF CARE 108 MG/DL (70-110)
[2022-03-11 23:36] LABS: GLUCOSE,POINT OF CARE 78 MG/DL (70-110)
[2022-03-12] VITALS: BP 117/76
[2022-03-12 00:01] LABS: GLUCOSE,POINT OF CARE 118 MG/DL (70-110)
[2022-03-12] MEDS: VASOPRESSIN 40 UNITS in DEXTROSE 5%-WATER 98 ML IV PRN (00:49)
[2022-03-12] MEDS: MetroNIDAZOLE 500 MG/NACL 100 ML IV SCH ×3 (01:38→17:51)
[2022-03-12] MEDS: PROPOFOL 1000 MG/ISO-OSM 100 ML IV PRN ×2 (02:56→10:27)
[2022-03-12] MEDS: NOREPINEPHRINE 8 MG/D5%-WATER 250 ML IV PRN (03:44)
[2022-03-12 04:00] VITALS: BP 112/71
[2022-03-12] MEDS: HYDROCORTISONE SOD SUCC 100 MG/2 ML VIAL IVP SCH ×4 (05:44→23:05)
[2022-03-12] MEDS: ALBUMIN HUMAN 25%-12.5GM/50ML 50 ML IV SCH ×4 (05:44→23:02)
[2022-03-12 05:48] LABS: BASOPHILS % (AUTO) 0.2 % (0.0-2.0); EOSINOPHILS % (AUTO) 0 % (1.0-6.0); HEMATOCRIT 25.3 % (41-53); HEMOGLOBIN 8.6 g/dL (13.5-17.5); LYMPHOCYTES # (AUTO) 0.2 K/uL (1.0-4.8); LYMPHOCYTES % (AUTO) 0.9 % (22.0-44.0); MEAN CORPUSCULAR HEMOGLOBIN 36.4 pg (26.0-34.0); MEAN CORPUSCULAR HGB CONC 34.1 G/dL (31.0-37.0); MEAN CORPUSCULAR VOLUME 107 fL (80-100); MONOCYTES # (AUTO) 0.4 K/uL (0.1-1.0); MONOCYTES % (AUTO) 1.5 % (2.0-9.0); NEUTROPHILS # (AUTO) 24.9 K/uL (1.8-7.7); PLATELET COUNT (AUTO) 168 K/uL (150-450); RED BLOOD CELL COUNT(AUTO) 2.37 MIL/uL (4.50-5.90); RED CELL DISTRIBUTION WIDTH 15.3 % (11.5-14.5)
[2022-03-12 05:59] LABS: ALBUMIN 1.6 g/dL (3.4-5.0); BILIRUBIN,TOTAL 1.5 mg/dL (0.1-1.0); CALCIUM, TOTAL 7.9 mg/dL (8.8-10.5); CREATININE 1.74 mg/dL (0.60-1.30); POTASSIUM 3.3 mmol/L (3.5-5.1); TOTAL PROTEIN, SERUM 4.8 g/dL (6.4-8.2); VANCOMYCIN,RANDOM 21.3 mcg/mL (25.0-50.0)
[2022-03-12 06:09] LABS: NEUTROPHILS % (AUTO) 97.4 % (40.0-70.0)
[2022-03-12 06:11] LABS: GLUCOSE,POINT OF CARE 105 MG/DL (70-110)
[2022-03-12 08:00] VITALS: BP 122/75
[2022-03-12 08:04] LABS: MAGNESIUM 1.7 mg/dL (1.80-2.40)
[2022-03-12] MEDS: VANCOMYCIN 1GM/WATER(PEG/NADA) 200 ML IV SCH (08:45)
[2022-03-12] MEDS: PANTOPRAZOLE SODIUM 40 MG/VIAL IVP SCH ×2 (08:46→20:44)
[2022-03-12] MEDS: SODIUM BICARBONATE 75 MEQ in DEXTROSE 5%-WATER 1,000 ML IV SCH (08:46)
[2022-03-12] MEDS: METOCLOPRAMIDE HCL 5 MG/ML 2 ML VIAL IVP SCH ×2 (08:47→20:44)
[2022-03-12] MEDS: CHLORHEXIDINE GLUCONATE 0.12% 15 ML UDCUP ORAL RINSE MM SCH ×2 (08:47→20:44)
[2022-03-12] MEDS: ETHYL ALCOHOL 62% ANTISEPTIC NASAL SANITIZER 0.6 ML AMPUL NASAL SCH ×2 (08:49→20:45)
[2022-03-12] MEDS ORDERED: POTASSIUM CHL 10 MEQ/WATER 50 ML IV ONE (09:30)
[2022-03-12] MEDS ORDERED: MAGNESIUM SULFATE 1 GM in DEXTROSE 5%-WATER 50 ML IV ONE (09:30)
[2022-03-12] MEDS: LevETIRAcetam 500 MG in DEXTROSE 5%-WATER 100 ML IV SCH ×2 (09:49→22:47)
[2022-03-12] MEDS: AZITHROMYCIN 500 MG/NS 250 ML IV SCH (10:26)
[2022-03-12 12:00] VITALS: BP 101/60
[2022-03-12] MEDS ORDERED: *CLINICAL-LEVOFLOXACIN IVPB DOSING CLINICAL ONE (12:00)
[2022-03-12] MEDS ORDERED: LEVOFLOXACIN 750 MG/D5% WATER 150 ML IV SCH (13:00)
[2022-03-12 13:36] LABS: GLUCOSE,POINT OF CARE 80 MG/DL (70-110)
[2022-03-12 15:57] LABS: CREATININE 1.64 mg/dL (0.60-1.30); MAGNESIUM 1.7 mg/dL (1.80-2.40); POTASSIUM 3.2 mmol/L (3.5-5.1)
[2022-03-12 16:00] VITALS: BP 114/67
[2022-03-12] MEDS: CefTRIAXone SODIUM 2 GM in DEXTROSE 5%-WATER 50 ML IV SCH (17:51)
[2022-03-12] MEDS: POTASSIUM CHL 10 MEQ/WATER 50 ML IV SCH ×2 (19:58→20:44)
[2022-03-12 20:00] VITALS: BP 104/59
[2022-03-12 21:41] LABS: GLUCOSE,POINT OF CARE 78 MG/DL (70-110)
[2022-03-13] VITALS: BP 91/53
[2022-03-13] MEDS: PROPOFOL 1000 MG/ISO-OSM 100 ML IV PRN ×3 (00:42→23:42)
[2022-03-13] MEDS: FentaNYL CIT 1000MCG/0.9% NACL 100 ML IV PRN ×2 (00:44→21:32)
[2022-03-13] MEDS: NOREPINEPHRINE 8 MG/D5%-WATER 250 ML IV PRN (00:45)
[2022-03-13] MEDS: MetroNIDAZOLE 500 MG/NACL 100 ML IV SCH ×3 (02:08→17:43)
[2022-03-13 04:00] VITALS: BP 115/63
[2022-03-13 05:03] LABS: BASOPHILS % (AUTO) 0.2 % (0.0-2.0); EOSINOPHILS % (AUTO) 0 % (1.0-6.0); HEMATOCRIT 24.9 % (41-53); HEMOGLOBIN 8.4 g/dL (13.5-17.5); LYMPHOCYTES # (AUTO) 0.3 K/uL (1.0-4.8); LYMPHOCYTES % (AUTO) 1.1 % (22.0-44.0); MEAN CORPUSCULAR HEMOGLOBIN 36.3 pg (26.0-34.0); MEAN CORPUSCULAR HGB CONC 33.8 G/dL (31.0-37.0); MEAN CORPUSCULAR VOLUME 107 fL (80-100); MONOCYTES # (AUTO) 0.2 K/uL (0.1-1.0); MONOCYTES % (AUTO) 0.7 % (2.0-9.0); NEUTROPHILS # (AUTO) 22.2 K/uL (1.8-7.7); PLATELET COUNT (AUTO) 140 K/uL (150-450); RED BLOOD CELL COUNT(AUTO) 2.32 MIL/uL (4.50-5.90); RED CELL DISTRIBUTION WIDTH 15.6 % (11.5-14.5)
[2022-03-13] MEDS: ALBUMIN HUMAN 25%-12.5GM/50ML 50 ML IV SCH ×4 (05:08→23:27)
[2022-03-13] MEDS: HYDROCORTISONE SOD SUCC 100 MG/2 ML VIAL IVP SCH ×3 (05:08→17:43)
[2022-03-13] MEDS: SODIUM BICARBONATE 75 MEQ in DEXTROSE 5%-WATER 1,000 ML IV SCH (05:09)
[2022-03-13 05:12] LABS: ALBUMIN 1.8 g/dL (3.4-5.0); BILIRUBIN,TOTAL 0.9 mg/dL (0.1-1.0); C-REACTIVE PROTEIN QUANT 14.93 mg/dL (0.00-0.30); CALCIUM, TOTAL 8.4 mg/dL (8.8-10.5); CREATININE 1.62 mg/dL (0.60-1.30); POTASSIUM 3.5 mmol/L (3.5-5.1); TOTAL PROTEIN, SERUM 5.2 g/dL (6.4-8.2)
[2022-03-13 06:16] LABS: GLUCOSE,POINT OF CARE 86 MG/DL (70-110)
[2022-03-13] MEDS: VANCOMYCIN 1GM/WATER(PEG/NADA) 200 ML IV SCH (07:53)
[2022-03-13 08:00] VITALS: BP 117/65
[2022-03-13] MEDS: METOCLOPRAMIDE HCL 5 MG/ML 2 ML VIAL IVP SCH ×2 (08:28→20:24)
[2022-03-13] MEDS: PANTOPRAZOLE SODIUM 40 MG/VIAL IVP SCH ×2 (08:28→20:24)
[2022-03-13] MEDS: CHLORHEXIDINE GLUCONATE 0.12% 15 ML UDCUP ORAL RINSE MM SCH ×2 (08:30→20:24)
[2022-03-13] MEDS: ETHYL ALCOHOL 62% ANTISEPTIC NASAL SANITIZER 0.6 ML AMPUL NASAL SCH ×2 (08:30→20:25)
[2022-03-13] MEDS: LevETIRAcetam 500 MG in DEXTROSE 5%-WATER 100 ML IV SCH ×2 (09:15→22:23)
[2022-03-13] MEDS: ONDANSETRON HCL 4 MG/2 ML VIAL IVP PRN (09:16)
[2022-03-13] MEDS: ACETAMINOPHEN 325 MG TABLET PO PRN (09:16)
[2022-03-13 12:00] VITALS: BP 97/57
[2022-03-13 16:00] VITALS: BP 91/68
[2022-03-13 16:51] LABS: APPEARANCE,URINE CLEAR (CLEAR); BILIRUBIN,URINE NEGATIVE (NEGATIVE); GLUCOSE, URINE (UA) NEGATIVE (NEGATIVE); KETONES,URINE NEGATIVE (NEGATIVE); LEUKOCYTE ESTERASE ,URINE NEGATIVE (NEGATIVE); NITRATE,URINE NEGATIVE (NEGATIVE); OCCULT BLOOD,URINE TRACE (NEGATIVE); PROTEIN,URINE 30-70 mg/dL (NEGATIVE); UROBILINOGEN,URINE <=1.0 mg/dL (<=1.0)
[2022-03-13 16:58] LABS: BACTERIA,URINE Rare /HPF (None Seen); RBC,URINE 0-2 /HPF (0-2); SQUAMOUS EPITHELIAL CELL,UR Rare /LPF (None Seen); WBC,URINE 0-2 /HPF (0-5)
[2022-03-13] MEDS: CefTRIAXone SODIUM 2 GM in DEXTROSE 5%-WATER 50 ML IV SCH (17:07)
[2022-03-13 17:37] LABS: GLUCOSE,POINT OF CARE 90 MG/DL (70-110)
[2022-03-13 20:00] VITALS: BP 96/63
[2022-03-13] MEDS: DOCUSATE SODIUM 100 MG CAPSULE PO SCH (20:23)
[2022-03-14] VITALS: BP 108/59
[2022-03-14] MEDS: HYDROCORTISONE SOD SUCC 100 MG/2 ML VIAL IVP SCH ×5 (00:17→23:25)
[2022-03-14] MEDS: MetroNIDAZOLE 500 MG/NACL 100 ML IV SCH ×3 (02:37→17:22)
[2022-03-14] MEDS: SODIUM BICARBONATE 75 MEQ in DEXTROSE 5%-WATER 1,000 ML IV SCH (02:41)
[2022-03-14] MEDS: BISACODYL 10 MG RECTAL RECTAL SUPPOSITORY PR PRN ×2 (03:14→23:30)
[2022-03-14 04:00] VITALS: BP 116/68
[2022-03-14] MEDS: ALBUMIN HUMAN 25%-12.5GM/50ML 50 ML IV SCH ×4 (04:26→22:38)
[2022-03-14 05:03] LABS: BASOPHILS % (AUTO) 0.8 % (0.0-2.0); EOSINOPHILS % (AUTO) 0 % (1.0-6.0); HEMATOCRIT 22.7 % (41-53); HEMOGLOBIN 7.7 g/dL (13.5-17.5); LYMPHOCYTES # (AUTO) 0.3 K/uL (1.0-4.8); LYMPHOCYTES % (AUTO) 1.6 % (22.0-44.0); MEAN CORPUSCULAR HEMOGLOBIN 35.8 pg (26.0-34.0); MEAN CORPUSCULAR HGB CONC 33.9 G/dL (31.0-37.0); MEAN CORPUSCULAR VOLUME 106 fL (80-100); MONOCYTES # (AUTO) 0.2 K/uL (0.1-1.0); MONOCYTES % (AUTO) 1.2 % (2.0-9.0); NEUTROPHILS # (AUTO) 18.3 K/uL (1.8-7.7); PLATELET COUNT (AUTO) 124 K/uL (150-450); RED BLOOD CELL COUNT(AUTO) 2.14 MIL/uL (4.50-5.90); RED CELL DISTRIBUTION WIDTH 15.5 % (11.5-14.5)
[2022-03-14 05:05] LABS: NEUTROPHILS % (AUTO) 96.4 % (40.0-70.0)
[2022-03-14 05:15] LABS: ALBUMIN 2.1 g/dL (3.4-5.0); BILIRUBIN,TOTAL 0.8 mg/dL (0.1-1.0); CALCIUM, TOTAL 8.4 mg/dL (8.8-10.5); CREATININE 1.48 mg/dL (0.60-1.30); POTASSIUM 3.3 mmol/L (3.5-5.1); TOTAL PROTEIN, SERUM 5.1 g/dL (6.4-8.2)
[2022-03-14] MEDS ORDERED: SODIUM CHLORIDE 0.9% 250 ML IV ONE ×2 (05:45→10:06)
[2022-03-14 06:41] LABS: GLUCOMETER DEV NAME(LOC) AHU.; GLUCOSE,POINT OF CARE 96 MG/DL (70-110)
[2022-03-14 06:41] LABS: GLUCOMETER DEV NAME(LOC) AHU.; GLUCOSE,POINT OF CARE 104 MG/DL (70-110)
[2022-03-14] MEDS: ONDANSETRON HCL 4 MG/2 ML VIAL IVP PRN (06:47)
[2022-03-14 07:41] LABS: GLUCOSE,POINT OF CARE 117 MG/DL (70-110)
[2022-03-14 07:41] LABS: GLUCOSE,POINT OF CARE 115 MG/DL (70-110)
[2022-03-14 08:00] VITALS: BP 113/64
[2022-03-14] MEDS: PANTOPRAZOLE SODIUM 40 MG/VIAL IVP SCH ×2 (08:10→20:38)
[2022-03-14] MEDS: METOCLOPRAMIDE HCL 5 MG/ML 2 ML VIAL IVP SCH ×2 (08:10→20:38)
[2022-03-14] MEDS: CHLORHEXIDINE GLUCONATE 0.12% 15 ML UDCUP ORAL RINSE MM SCH ×2 (08:10→20:38)
[2022-03-14] MEDS: DOCUSATE SODIUM 100 MG CAPSULE PO SCH ×2 (08:10→20:38)
[2022-03-14] MEDS: ETHYL ALCOHOL 62% ANTISEPTIC NASAL SANITIZER 0.6 ML AMPUL NASAL SCH ×2 (08:10→20:38)
[2022-03-14] MEDS: VANCOMYCIN 1GM/WATER(PEG/NADA) 200 ML IV SCH (08:10)
[2022-03-14] MEDS: ACETAMINOPHEN 325 MG TABLET PO PRN ×3 (08:19→23:30)
[2022-03-14] MEDS: FentaNYL CIT 1000MCG/0.9% NACL 100 ML IV PRN ×2 (08:20→18:31)
[2022-03-14] MEDS: PROPOFOL 1000 MG/ISO-OSM 100 ML IV PRN ×3 (08:21→22:39)
[2022-03-14] MEDS: LevETIRAcetam 500 MG in DEXTROSE 5%-WATER 100 ML IV SCH (10:14)
[2022-03-14 12:00] VITALS: BP 99/56
[2022-03-14] MEDS ORDERED: DEXTROSE 5%-WATER 1,000 ML IV ONE (12:00)
[2022-03-14] MEDS: DEXTROSE 5%-WATER 1,000 ML IV SCH (12:03)
[2022-03-14] MEDS: POTASSIUM CHL 10 MEQ/WATER 50 ML IV SCH ×2 (12:28→13:14)
[2022-03-14 16:00] VITALS: BP 97/55
[2022-03-14 16:56] LABS: GLUCOMETER DEV NAME(LOC) AHU.; GLUCOSE,POINT OF CARE 108 MG/DL (70-110)
[2022-03-14] MEDS: CefTRIAXone SODIUM 2 GM in DEXTROSE 5%-WATER 50 ML IV SCH (17:22)
[2022-03-14 20:00] VITALS: BP 106/65
[2022-03-14 20:26] LABS: GLUCOMETER DEV NAME(LOC) AHU.; GLUCOSE,POINT OF CARE 113 MG/DL (70-110)
[2022-03-15] VITALS: BP 112/112
[2022-03-15] MEDS: MetroNIDAZOLE 500 MG/NACL 100 ML IV SCH ×3 (02:19→17:04)
[2022-03-15 04:00] VITALS: BP 112/67
[2022-03-15] MEDS: ALBUMIN HUMAN 25%-12.5GM/50ML 50 ML IV SCH ×4 (04:27→23:51)
[2022-03-15 05:24] LABS: BASOPHILS % (AUTO) 0.1 % (0.0-2.0); EOSINOPHILS % (AUTO) 0 % (1.0-6.0); HEMATOCRIT 23.9 % (41-53); LYMPHOCYTES # (AUTO) 0.4 K/uL (1.0-4.8); LYMPHOCYTES % (AUTO) 1.6 % (22.0-44.0); MEAN CORPUSCULAR HEMOGLOBIN 35.6 pg (26.0-34.0); MEAN CORPUSCULAR HGB CONC 33.4 G/dL (31.0-37.0); MEAN CORPUSCULAR VOLUME 107 fL (80-100); MONOCYTES # (AUTO) 0.4 K/uL (0.1-1.0); MONOCYTES % (AUTO) 1.5 % (2.0-9.0); NEUTROPHILS # (AUTO) 23.6 K/uL (1.8-7.7); PLATELET COUNT (AUTO) 130 K/uL (150-450); RED BLOOD CELL COUNT(AUTO) 2.25 MIL/uL (4.50-5.90)
[2022-03-15 05:25] LABS: NEUTROPHILS % (AUTO) 96.8 % (40.0-70.0)
[2022-03-15 05:34] LABS: INR 1.3 (0.9-1.1); PROTHROMBIN TIME 14.1 SEC (9.4-11.6)
[2022-03-15 05:35] LABS: ALBUMIN 2.4 g/dL (3.4-5.0); BILIRUBIN,TOTAL 0.7 mg/dL (0.1-1.0); C-REACTIVE PROTEIN QUANT 6.49 mg/dL (0.00-0.30); CALCIUM, TOTAL 8.4 mg/dL (8.8-10.5); CREATININE 1.33 mg/dL (0.60-1.30); MAGNESIUM 1.6 mg/dL (1.80-2.40); POTASSIUM 3.2 mmol/L (3.5-5.1); TOTAL PROTEIN, SERUM 5.3 g/dL (6.4-8.2)
[2022-03-15 06:12] LABS: GLUCOMETER DEV NAME(LOC) AHU.; GLUCOSE,POINT OF CARE 124 MG/DL (70-110)
[2022-03-15] MEDS: HYDROCORTISONE SOD SUCC 100 MG/2 ML VIAL IVP SCH ×4 (06:13→23:51)
[2022-03-15] MEDS: DEXTROSE 5%-WATER 1,000 ML IV SCH ×2 (06:20→21:22)
[2022-03-15] MEDS: FentaNYL CIT 1000MCG/0.9% NACL 100 ML IV PRN ×2 (06:20→20:16)
[2022-03-15] MEDS: PROPOFOL 1000 MG/ISO-OSM 100 ML IV PRN ×2 (06:21→17:06)
[2022-03-15 08:00] VITALS: BP 136/83
[2022-03-15] MEDS: PANTOPRAZOLE SODIUM 40 MG/VIAL IVP SCH ×2 (08:26→21:09)
[2022-03-15] MEDS: ETHYL ALCOHOL 62% ANTISEPTIC NASAL SANITIZER 0.6 ML AMPUL NASAL SCH ×2 (08:26→21:11)
[2022-03-15] MEDS: METOCLOPRAMIDE HCL 5 MG/ML 2 ML VIAL IVP SCH ×2 (08:27→21:11)
[2022-03-15] MEDS: VANCOMYCIN 1GM/WATER(PEG/NADA) 200 ML IV SCH (08:27)
[2022-03-15] MEDS: CHLORHEXIDINE GLUCONATE 0.12% 15 ML UDCUP ORAL RINSE MM SCH ×2 (08:28→21:10)
[2022-03-15] MEDS: DOCUSATE SODIUM 100 MG CAPSULE PO SCH ×2 (08:28→21:09)
[2022-03-15 08:36] LABS: GLUCOSE,POINT OF CARE 108 MG/DL (70-110)
[2022-03-15] MEDS ORDERED: MAGNESIUM SULFATE 1 GM in DEXTROSE 5%-WATER 50 ML IV ONE (08:45)
[2022-03-15] MEDS ORDERED: METOCLOPRAMIDE HCL 5 MG/ML 2 ML VIAL IVP SCH (09:00)
[2022-03-15] MEDS: POTASSIUM CHL 10 MEQ/WATER 50 ML IV SCH ×3 (09:35→10:57)
[2022-03-15] MEDS ORDERED: SODIUM CHLORIDE 0.9% 250 ML IV ONE ×2 (09:45→09:46)
[2022-03-15 10:17] LABS: ABG BASE EXCESS 0.4 mmol/L (-2.0-3.0); ABG CARBOXYHEMOGLOBIN 0.3 % (0.0-1.5); ABG HCO3 24.4 mmol/L (22.0-26.0); ABG METHEMOGLOBIN 0.3 % (0.0-1.5); ABG OXYGEN CONTENT 12.8 mL/dL (15.0-23.0); ABG OXYGEN SATURATION 94.3 % (95.0-98.0); ABG OXYHEMOGLOBIN 93.7 % (94.0-100.0); ABG PCO2 53 mmHg (35-45); ABG PH 7.316 (7.35-7.450); ABG TOTAL HEMOGLOBIN 9.6 G/dL (12.0-18.0); PO2, ARTERIAL BG 79.9 mmHg (88.0-96.0); SOURCE, BLOOD GAS ARTERIAL; TEMPERATURE, FAHRENHEIT, BG 98.6 FAHREN (96.0-98.6)
[2022-03-15 10:59] LABS: SITE, BLOOD GAS RT RADIAL
[2022-03-15 11:00] LABS: O2 DEVICE,BLOOD GAS VENTILATOR (ROOM AIR); PEEP,BG 8 cm H2O; VT, ABG 450 ml
[2022-03-15 11:01] LABS: ABG A-A DIFF O2 434.6 mmHg (10-20.0)
[2022-03-15 12:00] VITALS: BP 132/83
[2022-03-15 16:00] VITALS: BP 141/82
[2022-03-15] MEDS: CefTRIAXone SODIUM 2 GM in DEXTROSE 5%-WATER 50 ML IV SCH (17:05)
[2022-03-15 20:00] VITALS: BP 109/66
[2022-03-15] MEDS ORDERED: ROCURONIUM BROMIDE 10 MG/ML 5 ML VIAL IVP ONE (20:15)
[2022-03-16] VITALS: BP 121/71
[2022-03-16] MEDS: MetroNIDAZOLE 500 MG/NACL 100 ML IV SCH ×3 (02:25→16:51)
[2022-03-16 04:00] VITALS: BP 110/66
[2022-03-16] MEDS: ALBUMIN HUMAN 25%-12.5GM/50ML 50 ML IV SCH ×4 (04:26→23:33)
[2022-03-16] MEDS: FentaNYL CIT 1000MCG/0.9% NACL 100 ML IV PRN ×3 (04:26→23:34)
[2022-03-16] MEDS: HYDROCORTISONE SOD SUCC 100 MG/2 ML VIAL IVP SCH ×3 (04:55→16:51)
[2022-03-16] MEDS: PROPOFOL 1000 MG/ISO-OSM 100 ML IV PRN ×4 (04:56→23:34)
[2022-03-16 05:41] LABS: GLUCOSE,POINT OF CARE 120 MG/DL (70-110)
[2022-03-16 05:44] LABS: BASOPHILS % (AUTO) 0.1 % (0.0-2.0); EOSINOPHILS % (AUTO) 0 % (1.0-6.0); HEMATOCRIT 22.3 % (41-53); HEMOGLOBIN 7.6 g/dL (13.5-17.5); LYMPHOCYTES # (AUTO) 0.3 K/uL (1.0-4.8); LYMPHOCYTES % (AUTO) 1.5 % (22.0-44.0); MEAN CORPUSCULAR HEMOGLOBIN 36.1 pg (26.0-34.0); MEAN CORPUSCULAR VOLUME 106 fL (80-100); MONOCYTES # (AUTO) 0.4 K/uL (0.1-1.0); MONOCYTES % (AUTO) 1.9 % (2.0-9.0); NEUTROPHILS # (AUTO) 20.4 K/uL (1.8-7.7); PLATELET COUNT (AUTO) 140 K/uL (150-450); RED CELL DISTRIBUTION WIDTH 15.3 % (11.5-14.5)
[2022-03-16 05:46] LABS: NEUTROPHILS % (AUTO) 96.5 % (40.0-70.0)
[2022-03-16 06:02] LABS: ANION GAP 6 mmol/L (8-16); CALCIUM, TOTAL 8.6 mg/dL (8.8-10.5); CARBON DIOXIDE 28 mmol/L (22-29); CHLORIDE 109 mmol/L (98-107); CREATININE 1.03 mg/dL (0.60-1.30); GLOMERULAR FILTR. RATE CALC > 60 mL/min (>60); GLUCOSE,RANDOM 126 mg/dL (70-110); POTASSIUM 3.4 mmol/L (3.5-5.1); SODIUM SERUM 143 mmol/L (136-145); UREA NITROGEN, BLOOD 43 mg/dL (7-18); VANCOMYCIN,RANDOM 18.1 mcg/mL (25.0-50.0)
[2022-03-16 06:16] LABS: GLUCOSE,POINT OF CARE 117 MG/DL (70-110)
[2022-03-16 06:16] LABS: GLUCOSE,POINT OF CARE 129 MG/DL (70-110)
[2022-03-16 06:16] LABS: GLUCOSE,POINT OF CARE 124 MG/DL (70-110)
[2022-03-16 06:17] LABS: GLUCOSE,POINT OF CARE 133 MG/DL (70-110)
[2022-03-16] MEDS: PANTOPRAZOLE SODIUM 40 MG/VIAL IVP SCH ×2 (08:41→21:35)
[2022-03-16] MEDS: ETHYL ALCOHOL 62% ANTISEPTIC NASAL SANITIZER 0.6 ML AMPUL NASAL SCH ×2 (08:42→21:35)
[2022-03-16] MEDS: VANCOMYCIN 1GM/WATER(PEG/NADA) 200 ML IV SCH (08:42)
[2022-03-16] MEDS: METOCLOPRAMIDE HCL 5 MG/ML 2 ML VIAL IVP SCH ×2 (08:42→21:35)
[2022-03-16] MEDS: DOCUSATE SODIUM 100 MG CAPSULE PO SCH ×2 (08:43→21:36)
[2022-03-16] MEDS: CHLORHEXIDINE GLUCONATE 0.12% 15 ML UDCUP ORAL RINSE MM SCH ×2 (08:43→21:35)
[2022-03-16] MEDS: POTASSIUM CHL 10 MEQ/WATER 50 ML IV SCH ×3 (09:45→11:34)
[2022-03-16] MEDS: ACETAMINOPHEN 325 MG TABLET PO PRN (10:37)
[2022-03-16] MEDS ORDERED: SODIUM CHLORIDE 0.9% 500 ML IV ONE (10:41)
[2022-03-16 12:00] VITALS: BP 115/69
[2022-03-16] MEDS: ALBUTEROL SULFATE 2.5 MG/0.5 ML NEB SOLUTION NEB PRN ×3 (12:02→23:04)
[2022-03-16] MEDS: ACETYLCYSTEINE 10% 100 MG/ML 4 ML NEB SOLUTION NEB SCH ×4 (12:02→22:38)
[2022-03-16] MEDS: IPRATROPIUM BROMIDE 0.5 MG/2.5 ML NEB SOLUTION NEB PRN ×3 (12:02→23:04)
[2022-03-16] MEDS: DEXTROSE 5%-WATER 1,000 ML IV SCH (12:31)
[2022-03-16 16:00] VITALS: BP 91/58
[2022-03-16] MEDS: CefTRIAXone SODIUM 2 GM in DEXTROSE 5%-WATER 50 ML IV SCH (16:52)
[2022-03-16 18:46] LABS: GLUCOSE,POINT OF CARE 124 MG/DL (70-110)
[2022-03-16 20:00] VITALS: BP 114/74
[2022-03-16] MEDS: LACTULOSE 20 GM/30 ML SOLUTION UDCUP PO PRN (21:35)
[2022-03-17] VITALS: BP 109/72
[2022-03-17] MEDS: HYDROCORTISONE SOD SUCC 100 MG/2 ML VIAL IVP SCH ×5 (00:29→23:35)
[2022-03-17 00:46] LABS: GLUCOSE,POINT OF CARE 108 MG/DL (70-110)
[2022-03-17] MEDS: DEXTROSE 5%-WATER 1,000 ML IV SCH ×2 (02:09→15:53)
[2022-03-17] MEDS: MetroNIDAZOLE 500 MG/NACL 100 ML IV SCH ×3 (02:09→17:39)
[2022-03-17] MEDS: ACETYLCYSTEINE 10% 100 MG/ML 4 ML NEB SOLUTION NEB SCH ×6 (03:36→22:46)
[2022-03-17 04:00] VITALS: BP 117/77
[2022-03-17] MEDS: ALBUMIN HUMAN 25%-12.5GM/50ML 50 ML IV SCH ×4 (04:23→23:35)
[2022-03-17] MEDS: PROPOFOL 1000 MG/ISO-OSM 100 ML IV PRN ×4 (04:45→18:46)
[2022-03-17 04:46] LABS: GLUCOSE,POINT OF CARE 122 MG/DL (70-110)
[2022-03-17 05:44] LABS: BASOPHILS % (AUTO) 0.2 % (0.0-2.0); EOSINOPHILS % (AUTO) 0 % (1.0-6.0); HEMATOCRIT 24.7 % (41-53); HEMOGLOBIN 8.4 g/dL (13.5-17.5); LYMPHOCYTES # (AUTO) 0.4 K/uL (1.0-4.8); LYMPHOCYTES % (AUTO) 1.6 % (22.0-44.0); MEAN CORPUSCULAR HEMOGLOBIN 36.2 pg (26.0-34.0); MEAN CORPUSCULAR HGB CONC 33.8 G/dL (31.0-37.0); MEAN CORPUSCULAR VOLUME 107 fL (80-100); MONOCYTES # (AUTO) 0.3 K/uL (0.1-1.0); MONOCYTES % (AUTO) 1.2 % (2.0-9.0); NEUTROPHILS # (AUTO) 22.4 K/uL (1.8-7.7); PLATELET COUNT (AUTO) 168 K/uL (150-450); RED BLOOD CELL COUNT(AUTO) 2.31 MIL/uL (4.50-5.90); RED CELL DISTRIBUTION WIDTH 15.4 % (11.5-14.5)
[2022-03-17 05:49] LABS: ALANINE AMINOTRANSFERASE 9 U/L (12-78); ALBUMIN 2.7 g/dL (3.4-5.0); ALKALINE PHOSPHATASE 65 U/L (46-116); ANION GAP 8 mmol/L (8-16); ASPARTATE AMINOTRANSFERASE 13 U/L (15-37); BILIRUBIN,TOTAL 0.6 mg/dL (0.1-1.0); C-REACTIVE PROTEIN QUANT 1.74 mg/dL (0.00-0.30); CALCIUM, TOTAL 8.7 mg/dL (8.8-10.5); CARBON DIOXIDE 28 mmol/L (22-29); CHLORIDE 109 mmol/L (98-107); GLOMERULAR FILTR. RATE CALC > 60 mL/min (>60); GLUCOSE,RANDOM 134 mg/dL (70-110); POTASSIUM 3.7 mmol/L (3.5-5.1); SODIUM SERUM 145 mmol/L (136-145); TOTAL PROTEIN, SERUM 5.5 g/dL (6.4-8.2); UREA NITROGEN, BLOOD 37 mg/dL (7-18)
[2022-03-17] MEDS: IPRATROPIUM BROMIDE 0.5 MG/2.5 ML NEB SOLUTION NEB PRN ×5 (07:58→22:46)
[2022-03-17] MEDS: ALBUTEROL SULFATE 2.5 MG/0.5 ML NEB SOLUTION NEB PRN ×5 (07:59→22:46)
[2022-03-17 08:00] VITALS: BP 127/82
[2022-03-17] MEDS: PANTOPRAZOLE SODIUM 40 MG/VIAL IVP SCH ×2 (08:20→21:07)
[2022-03-17] MEDS: ETHYL ALCOHOL 62% ANTISEPTIC NASAL SANITIZER 0.6 ML AMPUL NASAL SCH ×2 (08:20→21:07)
[2022-03-17] MEDS: METOCLOPRAMIDE HCL 5 MG/ML 2 ML VIAL IVP SCH ×2 (08:20→21:07)
[2022-03-17] MEDS: DOCUSATE SODIUM 100 MG CAPSULE PO SCH ×2 (08:20→21:07)
[2022-03-17] MEDS: CHLORHEXIDINE GLUCONATE 0.12% 15 ML UDCUP ORAL RINSE MM SCH ×2 (08:21→21:07)
[2022-03-17] MEDS: VANCOMYCIN 1GM/WATER(PEG/NADA) 200 ML IV SCH (08:21)
[2022-03-17] MEDS: ONDANSETRON HCL 4 MG/2 ML VIAL IVP PRN (09:40)
[2022-03-17] MEDS: LACTULOSE 20 GM/30 ML SOLUTION UDCUP PO PRN ×2 (09:40→21:08)
[2022-03-17 10:56] LABS: GLUCOSE,POINT OF CARE 126 MG/DL (70-110)
[2022-03-17] MEDS: POTASSIUM CHL 10 MEQ/WATER 50 ML IV SCH ×2 (11:21→12:08)
[2022-03-17 12:00] VITALS: BP 119/73
[2022-03-17] MEDS: FentaNYL CIT 1000MCG/0.9% NACL 100 ML IV PRN ×2 (12:00→18:44)
[2022-03-17 16:00] VITALS: BP 111/70
[2022-03-17] MEDS: CefTRIAXone SODIUM 2 GM in DEXTROSE 5%-WATER 50 ML IV SCH (16:57)
[2022-03-17 18:07] LABS: GLUCOSE,POINT OF CARE 128 MG/DL (70-110)
[2022-03-17 19:01] LABS: GLUCOSE,POINT OF CARE 131 MG/DL (70-110)
[2022-03-17 20:00] VITALS: BP 114/67
[2022-03-18] VITALS (18 sets, daily range): BP systolic 99–137; BP diastolic 60–84
[2022-03-18] MEDS: PROPOFOL 1000 MG/ISO-OSM 100 ML IV PRN ×4 (00:12→17:56)
[2022-03-18] MEDS: MetroNIDAZOLE 500 MG/NACL 100 ML IV SCH ×3 (01:44→17:13)
[2022-03-18] MEDS: FentaNYL CIT 1000MCG/0.9% NACL 100 ML IV PRN ×3 (01:45→17:57)
[2022-03-18 02:44] LABS: HEMATOCRIT 22.3 % (41-53); HEMOGLOBIN 7.3 g/dL (13.5-17.5)
[2022-03-18] MEDS: ACETYLCYSTEINE 10% 100 MG/ML 4 ML NEB SOLUTION NEB SCH ×6 (02:47→23:09)
[2022-03-18] MEDS: ALBUTEROL SULFATE 2.5 MG/0.5 ML NEB SOLUTION NEB PRN ×6 (02:47→23:09)
[2022-03-18] MEDS: IPRATROPIUM BROMIDE 0.5 MG/2.5 ML NEB SOLUTION NEB PRN ×3 (02:47→23:09)
[2022-03-18] MEDS ORDERED: SODIUM CHLORIDE 0.9% 250 ML IV ONE ×3 (03:23→20:51)
[2022-03-18] MEDS: ALBUMIN HUMAN 25%-12.5GM/50ML 50 ML IV SCH ×3 (04:52→17:12)
[2022-03-18 05:41] LABS: GLUCOSE,POINT OF CARE 129 MG/DL (70-110)
[2022-03-18] MEDS: HYDROCORTISONE SOD SUCC 100 MG/2 ML VIAL IVP SCH ×3 (05:59→21:01)
[2022-03-18] MEDS: DEXTROSE 5%-WATER 1,000 ML IV SCH ×2 (06:01→16:11)
[2022-03-18 06:18] LABS: PLATELET COUNT (AUTO) 203 K/uL (150-450); RED BLOOD CELL COUNT(AUTO) 1.74 MIL/uL (4.50-5.90); RED CELL DISTRIBUTION WIDTH 15.7 % (11.5-14.5)
[2022-03-18 06:19] LABS: ANION GAP 9 mmol/L (8-16); CALCIUM, TOTAL 8.7 mg/dL (8.8-10.5); CARBON DIOXIDE 27 mmol/L (22-29); CHLORIDE 112 mmol/L (98-107); CREATININE 0.78 mg/dL (0.60-1.30); GLOMERULAR FILTR. RATE CALC > 60 mL/min (>60); GLUCOSE,RANDOM 130 mg/dL (70-110); POTASSIUM 3.3 mmol/L (3.5-5.1); SODIUM SERUM 148 mmol/L (136-145); UREA NITROGEN, BLOOD 33 mg/dL (7-18); VANCOMYCIN,RANDOM 14.5 mcg/mL (25.0-50.0)
[2022-03-18 06:21] LABS: MEAN CORPUSCULAR HEMOGLOBIN 35.3 pg (26.0-34.0); MEAN CORPUSCULAR HGB CONC 32.4 G/dL (31.0-37.0); MEAN CORPUSCULAR VOLUME 109 fL (80-100)
[2022-03-18 06:24] LABS: HEMOGLOBIN 6.1 g/dL (13.5-17.5)
[2022-03-18 06:55] LABS: BAND NEUTROPHILS % (MANUAL) 0 % (0-5)
[2022-03-18 06:58] LABS: LYMPHOCYTES % (MANUAL) 4 % (22-44); MONOCYTES % (MANUAL) 2 % (2-9); MYELOCYTES % 1 % (0-0); SEGMENTED NEUTROPHILS % 93 % (40-70)
[2022-03-18] MEDS: METOCLOPRAMIDE HCL 5 MG/ML 2 ML VIAL IVP SCH ×2 (08:25→21:01)
[2022-03-18] MEDS: VANCOMYCIN HCL 1.25 GM in DEXTROSE 5%-WATER 250 ML IV SCH (08:25)
[2022-03-18] MEDS: ETHYL ALCOHOL 62% ANTISEPTIC NASAL SANITIZER 0.6 ML AMPUL NASAL SCH ×2 (08:26→21:01)
[2022-03-18] MEDS: DOCUSATE SODIUM 100 MG CAPSULE PO SCH ×2 (08:26→21:00)
[2022-03-18] MEDS: CHLORHEXIDINE GLUCONATE 0.12% 15 ML UDCUP ORAL RINSE MM SCH ×2 (08:27→21:01)
[2022-03-18 09:17] LABS: GLUCOSE,POINT OF CARE 118 MG/DL (70-110)
[2022-03-18] MEDS ORDERED: MAGNESIUM SULFATE 2 GM in DEXTROSE 5%-WATER 100 ML IV ONE (09:45)
[2022-03-18] MEDS: PANTOPRAZOLE SODIUM 80 MG in SODIUM CHLORIDE 0.9% 100 ML IV SCH ×2 (09:57→17:58)
[2022-03-18] MEDS ORDERED: MAGNESIUM SULFATE 2 GM in DEXTROSE 5%-WATER 50 ML IV ONE (10:00)
[2022-03-18] MEDS: POTASSIUM CHL 10 MEQ/WATER 50 ML IV SCH ×3 (10:12→13:32)
[2022-03-18] MEDS ORDERED: SODIUM CHLORIDE 0.9% 500 ML IV ONE (11:07)
[2022-03-18] MEDS: ACETAMINOPHEN 325 MG TABLET PO PRN (11:56)
[2022-03-18 17:03] LABS: HEMOGLOBIN 6.5 g/dL (13.5-17.5)
[2022-03-18 17:04] LABS: HEMATOCRIT 19.8 % (41-53)
[2022-03-18] MEDS: CefTRIAXone SODIUM 2 GM in DEXTROSE 5%-WATER 50 ML IV SCH (17:13)
[2022-03-18 22:36] LABS: GLUCOSE,POINT OF CARE 115 MG/DL (70-110)
[2022-03-18 22:36] LABS: GLUCOSE,POINT OF CARE 139 MG/DL (70-110)
[2022-03-19] VITALS (8 sets, daily range): BP systolic 88–158; BP diastolic 58–100
[2022-03-19] MEDS: PROPOFOL 1000 MG/ISO-OSM 100 ML IV PRN ×5 (00:21→23:11)
[2022-03-19] MEDS: ALBUMIN HUMAN 25%-12.5GM/50ML 50 ML IV SCH ×2 (00:48→04:59)
[2022-03-19] MEDS: DEXTROSE 5%-WATER 1,000 ML IV SCH ×2 (00:49→08:09)
[2022-03-19] MEDS: FentaNYL CIT 1000MCG/0.9% NACL 100 ML IV PRN ×4 (01:15→23:10)
[2022-03-19] MEDS: MetroNIDAZOLE 500 MG/NACL 100 ML IV SCH ×3 (01:15→17:33)
[2022-03-19] MEDS: ACETYLCYSTEINE 10% 100 MG/ML 4 ML NEB SOLUTION NEB SCH ×6 (02:34→21:59)
[2022-03-19] MEDS: IPRATROPIUM BROMIDE 0.5 MG/2.5 ML NEB SOLUTION NEB PRN ×4 (02:35→15:41)
[2022-03-19] MEDS: ALBUTEROL SULFATE 2.5 MG/0.5 ML NEB SOLUTION NEB PRN ×6 (02:35→21:59)
[2022-03-19] MEDS: PANTOPRAZOLE SODIUM 80 MG in SODIUM CHLORIDE 0.9% 100 ML IV SCH ×2 (05:00→15:22)
[2022-03-19 05:37] LABS: MEAN CORPUSCULAR HEMOGLOBIN 33.4 pg (26.0-34.0); MEAN CORPUSCULAR HGB CONC 34.1 G/dL (31.0-37.0); MEAN CORPUSCULAR VOLUME 98 fL (80-100); PLATELET COUNT (AUTO) 56 K/uL (150-450); RED BLOOD CELL COUNT(AUTO) 2.08 MIL/uL (4.50-5.90)
[2022-03-19 05:46] LABS: HEMATOCRIT 20.4 % (41-53)
[2022-03-19 05:48] LABS: ANION GAP 8 mmol/L (8-16); CARBON DIOXIDE 25 mmol/L (22-29); CHLORIDE 111 mmol/L (98-107); CREATININE 0.67 mg/dL (0.60-1.30); GLUCOSE,RANDOM 123 mg/dL (70-110); POTASSIUM 3.8 mmol/L (3.5-5.1); SODIUM SERUM 144 mmol/L (136-145); UREA NITROGEN, BLOOD 25 mg/dL (7-18)
[2022-03-19 05:49] LABS: CALCIUM, TOTAL 8.5 mg/dL (8.8-10.5)
[2022-03-19 05:51] LABS: GLOMERULAR FILTR. RATE CALC > 60 mL/min (>60)
[2022-03-19 05:55] LABS: BAND NEUTROPHILS % (MANUAL) 1 % (0-5); LYMPHOCYTES % (MANUAL) 4 % (22-44); MONOCYTES % (MANUAL) 1 % (2-9); SEGMENTED NEUTROPHILS % 94 % (40-70)
[2022-03-19 07:17] LABS: GLUCOSE,POINT OF CARE 96 MG/DL (70-110)
[2022-03-19 07:17] LABS: GLUCOSE,POINT OF CARE 120 MG/DL (70-110)
[2022-03-19] MEDS: VANCOMYCIN HCL 1.25 GM in DEXTROSE 5%-WATER 250 ML IV SCH (08:09)
[2022-03-19] MEDS: HYDROCORTISONE SOD SUCC 100 MG/2 ML VIAL IVP SCH ×2 (08:10→20:58)
[2022-03-19] MEDS: METOCLOPRAMIDE HCL 5 MG/ML 2 ML VIAL IVP SCH ×2 (08:10→20:58)
[2022-03-19] MEDS: CHLORHEXIDINE GLUCONATE 0.12% 15 ML UDCUP ORAL RINSE MM SCH ×2 (08:11→20:58)
[2022-03-19] MEDS: ETHYL ALCOHOL 62% ANTISEPTIC NASAL SANITIZER 0.6 ML AMPUL NASAL SCH ×2 (08:11→20:59)
[2022-03-19] MEDS: DOCUSATE SODIUM 100 MG CAPSULE PO SCH ×2 (08:11→20:59)
[2022-03-19] MEDS ORDERED: FUROSEMIDE 20 MG/2 ML VIAL IVP ONE (14:30)
[2022-03-19] MEDS ORDERED: SODIUM CHLORIDE 0.9% 250 ML IV ONE (15:17)
[2022-03-19 15:24] LABS: HEMATOCRIT 21.9 % (41-53); HEMOGLOBIN 7.5 g/dL (13.5-17.5)
[2022-03-19] MEDS: CefTRIAXone SODIUM 2 GM in DEXTROSE 5%-WATER 50 ML IV SCH (17:33)
[2022-03-19] MEDS: FUROSEMIDE 40 MG/4 ML VIAL IVP SCH (21:51)
[2022-03-19] MEDS ORDERED: PEG 3350/NA SULF,BICARB,CL/KCL 4000 ML SOLUTION PO ONE (22:00)
[2022-03-19 23:21] LABS: BASOPHILS % (AUTO) 0.4 % (0.0-2.0); EOSINOPHILS % (AUTO) 0.1 % (1.0-6.0); HEMATOCRIT 25.1 % (41-53); HEMOGLOBIN 8.6 g/dL (13.5-17.5); LYMPHOCYTES # (AUTO) 0.4 K/uL (1.0-4.8); LYMPHOCYTES % (AUTO) 1.3 % (22.0-44.0); MEAN CORPUSCULAR HEMOGLOBIN 33.6 pg (26.0-34.0); MEAN CORPUSCULAR HGB CONC 34.3 G/dL (31.0-37.0); MEAN CORPUSCULAR VOLUME 98 fL (80-100); MONOCYTES # (AUTO) 0.6 K/uL (0.1-1.0); NEUTROPHILS # (AUTO) 27.1 K/uL (1.8-7.7); PLATELET COUNT (AUTO) 196 K/uL (150-450); RED BLOOD CELL COUNT(AUTO) 2.56 MIL/uL (4.50-5.90); RED CELL DISTRIBUTION WIDTH 18.6 % (11.5-14.5)
[2022-03-19 23:22] LABS: NEUTROPHILS % (AUTO) 96.2 % (40.0-70.0)
[2022-03-19 23:31] LABS: GLUCOSE,POINT OF CARE 109 MG/DL (70-110)
[2022-03-19 23:31] LABS: GLUCOSE,POINT OF CARE 99 MG/DL (70-110)
[2022-03-19 23:33] LABS: INR 1.2 (0.9-1.1)
[2022-03-20] VITALS: BP 135/76
[2022-03-20] MEDS: PANTOPRAZOLE SODIUM 80 MG in SODIUM CHLORIDE 0.9% 100 ML IV SCH (01:14)
[2022-03-20] MEDS: MetroNIDAZOLE 500 MG/NACL 100 ML IV SCH ×3 (01:14→17:28)
[2022-03-20 03:06] LABS: GLUCOSE,POINT OF CARE 104 MG/DL (70-110)
[2022-03-20] MEDS: ACETYLCYSTEINE 10% 100 MG/ML 4 ML NEB SOLUTION NEB SCH ×6 (03:13→22:43)
[2022-03-20 04:00] VITALS: BP 112/74
[2022-03-20] MEDS: FentaNYL CIT 1000MCG/0.9% NACL 100 ML IV PRN ×3 (04:47→17:28)
[2022-03-20] MEDS: PROPOFOL 1000 MG/ISO-OSM 100 ML IV PRN ×4 (04:48→21:07)
[2022-03-20 05:55] LABS: EOSINOPHILS % (AUTO) 0.1 % (1.0-6.0); HEMATOCRIT 21.3 % (41-53); HEMOGLOBIN 7.3 g/dL (13.5-17.5); LYMPHOCYTES # (AUTO) 0.4 K/uL (1.0-4.8); LYMPHOCYTES % (AUTO) 2.3 % (22.0-44.0); MEAN CORPUSCULAR HEMOGLOBIN 33.9 pg (26.0-34.0); MEAN CORPUSCULAR HGB CONC 34.2 G/dL (31.0-37.0); MEAN CORPUSCULAR VOLUME 99 fL (80-100); MONOCYTES # (AUTO) 0.5 K/uL (0.1-1.0); NEUTROPHILS # (AUTO) 16.5 K/uL (1.8-7.7); PLATELET COUNT (AUTO) 182 K/uL (150-450); RED BLOOD CELL COUNT(AUTO) 2.15 MIL/uL (4.50-5.90)
[2022-03-20 06:08] LABS: INR 1.3 (0.9-1.1); PROTHROMBIN TIME 13.3 SEC (9.4-11.6)
[2022-03-20 06:11] LABS: NEUTROPHILS % (AUTO) 94.6 % (40.0-70.0)
[2022-03-20 06:12] LABS: ALANINE AMINOTRANSFERASE 37 U/L (12-78); ALBUMIN 2.2 g/dL (3.4-5.0); ALKALINE PHOSPHATASE 64 U/L (46-116); ANION GAP 6 mmol/L (8-16); ASPARTATE AMINOTRANSFERASE 149 U/L (15-37); BILIRUBIN,TOTAL 0.7 mg/dL (0.1-1.0); CALCIUM, TOTAL 8.1 mg/dL (8.8-10.5); CARBON DIOXIDE 30 mmol/L (22-29); CHLORIDE 107 mmol/L (98-107); CREATININE 0.52 mg/dL (0.60-1.30); GLUCOSE,RANDOM 91 mg/dL (70-110); SODIUM SERUM 143 mmol/L (136-145); TOTAL PROTEIN, SERUM 4.4 g/dL (6.4-8.2); UREA NITROGEN, BLOOD 17 mg/dL (7-18)
[2022-03-20 06:24] LABS: GLOMERULAR FILTR. RATE CALC > 60 mL/min (>60)
[2022-03-20 06:25] LABS: POTASSIUM 2.5 mmol/L (3.5-5.1)
[2022-03-20] MEDS: POTASSIUM CHL 10 MEQ/WATER 50 ML IV PRN ×12 (06:57→23:50)
[2022-03-20 08:00] VITALS: BP 137/85
[2022-03-20] MEDS: ALBUTEROL SULFATE 2.5 MG/0.5 ML NEB SOLUTION NEB PRN ×5 (08:16→22:43)
[2022-03-20] MEDS: VANCOMYCIN HCL 1.25 GM in DEXTROSE 5%-WATER 250 ML IV SCH (08:46)
[2022-03-20] MEDS: PANTOPRAZOLE SODIUM 40 MG/VIAL IVP SCH (08:47)
[2022-03-20] MEDS: METOCLOPRAMIDE HCL 5 MG/ML 2 ML VIAL IVP SCH ×2 (08:47→20:01)
[2022-03-20] MEDS: ETHYL ALCOHOL 62% ANTISEPTIC NASAL SANITIZER 0.6 ML AMPUL NASAL SCH ×2 (08:47→20:01)
[2022-03-20] MEDS: CHLORHEXIDINE GLUCONATE 0.12% 15 ML UDCUP ORAL RINSE MM SCH ×2 (08:48→20:01)
[2022-03-20] MEDS: DOCUSATE SODIUM 100 MG CAPSULE PO SCH ×2 (08:48→20:02)
[2022-03-20] MEDS: HYDROCORTISONE SOD SUCC 100 MG/2 ML VIAL IVP SCH ×2 (08:50→20:01)
[2022-03-20] MEDS: FUROSEMIDE 40 MG/4 ML VIAL IVP SCH ×2 (09:00→20:02)
[2022-03-20 10:56] LABS: GLUCOSE,POINT OF CARE 80 MG/DL (70-110)
[2022-03-20 12:00] VITALS: BP 113/68
[2022-03-20 12:21] LABS: BASOPHILS % (AUTO) 0.4 % (0.0-2.0); EOSINOPHILS % (AUTO) 0.2 % (1.0-6.0); HEMATOCRIT 21.5 % (41-53); HEMOGLOBIN 7.2 g/dL (13.5-17.5); LYMPHOCYTES # (AUTO) 0.2 K/uL (1.0-4.8); LYMPHOCYTES % (AUTO) 1.1 % (22.0-44.0); MEAN CORPUSCULAR HGB CONC 33.4 G/dL (31.0-37.0); MEAN CORPUSCULAR VOLUME 99 fL (80-100); MONOCYTES # (AUTO) 0.6 K/uL (0.1-1.0); MONOCYTES % (AUTO) 2.7 % (2.0-9.0); NEUTROPHILS % (AUTO) 95.6 % (40.0-70.0); PLATELET COUNT (AUTO) 181 K/uL (150-450); RED BLOOD CELL COUNT(AUTO) 2.18 MIL/uL (4.50-5.90); RED CELL DISTRIBUTION WIDTH 18.8 % (11.5-14.5)
[2022-03-20 13:16] LABS: GLUCOSE,POINT OF CARE 98 MG/DL (70-110)
[2022-03-20 13:51] LABS: ABG BASE EXCESS -0.3 mmol/L (-2.0-3.0); ABG CARBOXYHEMOGLOBIN 0.9 % (0.0-1.5); ABG HCO3 24.2 mmol/L (22.0-26.0); ABG METHEMOGLOBIN 0.3 % (0.0-1.5); ABG OXYGEN CONTENT 9.7 mL/dL (15.0-23.0); ABG OXYGEN SATURATION 95.1 % (95.0-98.0); ABG PCO2 39 mmHg (35-45); ABG PH 7.415 (7.35-7.450); PO2, ARTERIAL BG 86.4 mmHg (88.0-96.0); SOURCE, BLOOD GAS ARTERIAL; TEMPERATURE, FAHRENHEIT, BG 99.7 FAHREN (96.0-98.6)
[2022-03-20 13:52] LABS: ABG A-A DIFF O2 261.9 mmHg (10-20.0); ABG TOTAL HEMOGLOBIN 7.2 G/dL (12.0-18.0); O2 DEVICE,BLOOD GAS VENTILATOR (ROOM AIR); PEEP,BG 5 cm H2O; SITE, BLOOD GAS LFT RADIAL; VT, ABG 450 ml
[2022-03-20 16:00] VITALS: BP 108/71
[2022-03-20] MEDS: CefTRIAXone SODIUM 2 GM in DEXTROSE 5%-WATER 50 ML IV SCH (17:28)
[2022-03-20] MEDS ORDERED: SODIUM CHLORIDE 0.9% 250 ML IV ONE ×2 (17:55→23:09)
[2022-03-20] MEDS: IPRATROPIUM BROMIDE 0.5 MG/2.5 ML NEB SOLUTION NEB PRN ×2 (19:58→22:43)
[2022-03-20 20:00] VITALS: BP 87/55
[2022-03-20 20:16] LABS: GLUCOSE,POINT OF CARE 104 MG/DL (70-110)
[2022-03-20 22:59] LABS: BASOPHILS % (AUTO) 0.7 % (0.0-2.0); EOSINOPHILS % (AUTO) 0.2 % (1.0-6.0); HEMATOCRIT 21.4 % (41-53); HEMOGLOBIN 7.1 g/dL (13.5-17.5); LYMPHOCYTES # (AUTO) 0.3 K/uL (1.0-4.8); LYMPHOCYTES % (AUTO) 1.5 % (22.0-44.0); MEAN CORPUSCULAR HGB CONC 33.2 G/dL (31.0-37.0); MEAN CORPUSCULAR VOLUME 100 fL (80-100); MONOCYTES # (AUTO) 0.6 K/uL (0.1-1.0); MONOCYTES % (AUTO) 3.1 % (2.0-9.0); NEUTROPHILS % (AUTO) 94.5 % (40.0-70.0); PLATELET COUNT (AUTO) 204 K/uL (150-450); RED BLOOD CELL COUNT(AUTO) 2.15 MIL/uL (4.50-5.90); RED CELL DISTRIBUTION WIDTH 18.7 % (11.5-14.5)
[2022-03-20 23:08] LABS: INR 1.3 (0.9-1.1); PROTHROMBIN TIME 13.3 SEC (9.4-11.6)
[2022-03-20 23:10] LABS: PLATELET MORPHOLOGY COMMENT LARGE PLTS PRESENT
[2022-03-21] VITALS (13 sets, daily range): BP systolic 89–160; BP diastolic 54–94
[2022-03-21] MEDS: POTASSIUM CHL 10 MEQ/WATER 50 ML IV PRN ×7 (00:22→14:47)
[2022-03-21] MEDS: ACETAMINOPHEN 325 MG TABLET PO PRN ×3 (00:50→14:47)
[2022-03-21] MEDS: FentaNYL CIT 1000MCG/0.9% NACL 100 ML IV PRN ×4 (02:24→22:39)
[2022-03-21] MEDS: MetroNIDAZOLE 500 MG/NACL 100 ML IV SCH ×3 (02:24→17:06)
[2022-03-21] MEDS: ACETYLCYSTEINE 10% 100 MG/ML 4 ML NEB SOLUTION NEB SCH ×6 (02:47→22:41)
[2022-03-21] MEDS: IPRATROPIUM BROMIDE 0.5 MG/2.5 ML NEB SOLUTION NEB PRN ×3 (02:47→22:41)
[2022-03-21] MEDS: ALBUTEROL SULFATE 2.5 MG/0.5 ML NEB SOLUTION NEB PRN ×6 (02:47→22:41)
[2022-03-21] MEDS: PROPOFOL 1000 MG/ISO-OSM 100 ML IV PRN ×5 (03:15→23:47)
[2022-03-21 05:09] LABS: BASOPHILS % (AUTO) 0.1 % (0.0-2.0); EOSINOPHILS % (AUTO) 0.1 % (1.0-6.0); LYMPHOCYTES # (AUTO) 0.5 K/uL (1.0-4.8); LYMPHOCYTES % (AUTO) 3.7 % (22.0-44.0); MEAN CORPUSCULAR HEMOGLOBIN 33.7 pg (26.0-34.0); MEAN CORPUSCULAR HGB CONC 33.5 G/dL (31.0-37.0); MEAN CORPUSCULAR VOLUME 101 fL (80-100); MONOCYTES # (AUTO) 0.6 K/uL (0.1-1.0); MONOCYTES % (AUTO) 4.2 % (2.0-9.0); NEUTROPHILS # (AUTO) 12.9 K/uL (1.8-7.7); PLATELET COUNT (AUTO) 178 K/uL (150-450); RED BLOOD CELL COUNT(AUTO) 1.95 MIL/uL (4.50-5.90); RED CELL DISTRIBUTION WIDTH 18.6 % (11.5-14.5)
[2022-03-21 05:14] LABS: INR 1.3 (0.9-1.1); PROTHROMBIN TIME 13.5 SEC (9.4-11.6)
[2022-03-21 05:16] LABS: ANION GAP 6 mmol/L (8-16); CALCIUM, TOTAL 8.2 mg/dL (8.8-10.5); CARBON DIOXIDE 29 mmol/L (22-29); CHLORIDE 110 mmol/L (98-107); CREATININE 0.48 mg/dL (0.60-1.30); GLUCOSE,RANDOM 107 mg/dL (70-110); POTASSIUM 3.6 mmol/L (3.5-5.1); SODIUM SERUM 145 mmol/L (136-145); UREA NITROGEN, BLOOD 15 mg/dL (7-18); VANCOMYCIN,RANDOM 12.1 mcg/mL (25.0-50.0)
[2022-03-21 05:17] LABS: GLOMERULAR FILTR. RATE CALC > 60 mL/min (>60)
[2022-03-21 05:25] LABS: NEUTROPHILS % (AUTO) 91.9 % (40.0-70.0)
[2022-03-21 05:26] LABS: HEMATOCRIT 19.6 % (41-53); HEMOGLOBIN 6.5 g/dL (13.5-17.5)
[2022-03-21 05:33] LABS: PLATELET MORPHOLOGY COMMENT LARGE PLTS PRESENT
[2022-03-21 06:01] LABS: GLUCOSE,POINT OF CARE 113 MG/DL (70-110)
[2022-03-21 06:37] LABS: GLUCOSE,POINT OF CARE 91 MG/DL (70-110)
[2022-03-21] MEDS ORDERED: SODIUM CHLORIDE 0.9% 250 ML IV ONE (07:14)
[2022-03-21] MEDS: ETHYL ALCOHOL 62% ANTISEPTIC NASAL SANITIZER 0.6 ML AMPUL NASAL SCH ×2 (08:22→20:57)
[2022-03-21] MEDS: VANCOMYCIN HCL 750 MG in DEXTROSE 5%-WATER 250 ML IV SCH ×2 (08:22→20:53)
[2022-03-21] MEDS: CHLORHEXIDINE GLUCONATE 0.12% 15 ML UDCUP ORAL RINSE MM SCH ×2 (08:23→20:57)
[2022-03-21] MEDS: METOCLOPRAMIDE HCL 5 MG/ML 2 ML VIAL IVP SCH ×2 (08:23→20:57)
[2022-03-21] MEDS: PANTOPRAZOLE SODIUM 40 MG/VIAL IVP SCH (08:24)
[2022-03-21] MEDS: HYDROCORTISONE SOD SUCC 100 MG/2 ML VIAL IVP SCH (08:24)
[2022-03-21] MEDS: DOCUSATE SODIUM 100 MG CAPSULE PO SCH ×2 (08:25→20:57)
[2022-03-21] MEDS: FUROSEMIDE 40 MG/4 ML VIAL IVP SCH ×2 (08:59→20:57)
[2022-03-21 12:16] LABS: GLUCOSE,POINT OF CARE 108 MG/DL (70-110)
[2022-03-21 16:57] LABS: BASOPHILS % (AUTO) 0.2 % (0.0-2.0); EOSINOPHILS % (AUTO) 0.1 % (1.0-6.0); HEMATOCRIT 25.6 % (41-53); HEMOGLOBIN 8.5 g/dL (13.5-17.5); LYMPHOCYTES # (AUTO) 0.4 K/uL (1.0-4.8); LYMPHOCYTES % (AUTO) 1.7 % (22.0-44.0); MEAN CORPUSCULAR HEMOGLOBIN 32.4 pg (26.0-34.0); MEAN CORPUSCULAR HGB CONC 33.4 G/dL (31.0-37.0); MEAN CORPUSCULAR VOLUME 97 fL (80-100); MONOCYTES % (AUTO) 4.2 % (2.0-9.0); PLATELET COUNT (AUTO) 198 K/uL (150-450); RED BLOOD CELL COUNT(AUTO) 2.64 MIL/uL (4.50-5.90); RED CELL DISTRIBUTION WIDTH 19.6 % (11.5-14.5)
[2022-03-21 16:59] LABS: NEUTROPHILS % (AUTO) 93.8 % (40.0-70.0)
[2022-03-21] MEDS: CefTRIAXone SODIUM 2 GM in DEXTROSE 5%-WATER 50 ML IV SCH (17:06)
[2022-03-21 17:07] LABS: INR 1.2 (0.9-1.1)
[2022-03-21 21:21] LABS: GLUCOSE,POINT OF CARE 122 MG/DL (70-110)
[2022-03-22] VITALS: BP 150/88
[2022-03-22] MEDS: MetroNIDAZOLE 500 MG/NACL 100 ML IV SCH ×2 (02:01→10:03)
[2022-03-22] MEDS: ACETAMINOPHEN 325 MG TABLET PO PRN ×3 (02:02→12:38)
[2022-03-22] MEDS: ALBUTEROL SULFATE 2.5 MG/0.5 ML NEB SOLUTION NEB PRN ×4 (02:45→16:14)
[2022-03-22] MEDS: ACETYLCYSTEINE 10% 100 MG/ML 4 ML NEB SOLUTION NEB SCH ×6 (02:45→22:34)
[2022-03-22] MEDS: IPRATROPIUM BROMIDE 0.5 MG/2.5 ML NEB SOLUTION NEB PRN ×4 (02:46→16:14)
[2022-03-22] MEDS ORDERED: SODIUM CHLORIDE 0.9% 250 ML IV ONE (03:32)
[2022-03-22 04:00] VITALS: BP 117/68
[2022-03-22] MEDS: PROPOFOL 1000 MG/ISO-OSM 100 ML IV PRN ×3 (07:27→19:47)
[2022-03-22] MEDS: FentaNYL CIT 1000MCG/0.9% NACL 100 ML IV PRN ×2 (07:28→15:57)
[2022-03-22 08:00] VITALS: BP 163/112
[2022-03-22] MEDS: METOCLOPRAMIDE HCL 5 MG/ML 2 ML VIAL IVP SCH ×2 (08:05→20:12)
[2022-03-22] MEDS: FUROSEMIDE 40 MG/4 ML VIAL IVP SCH ×2 (08:05→20:12)
[2022-03-22] MEDS: PANTOPRAZOLE SODIUM 40 MG/VIAL IVP SCH (08:05)
[2022-03-22] MEDS: VANCOMYCIN HCL 750 MG in DEXTROSE 5%-WATER 250 ML IV SCH ×2 (08:05→20:13)
[2022-03-22] MEDS: ETHYL ALCOHOL 62% ANTISEPTIC NASAL SANITIZER 0.6 ML AMPUL NASAL SCH ×2 (08:06→20:12)
[2022-03-22] MEDS: CHLORHEXIDINE GLUCONATE 0.12% 15 ML UDCUP ORAL RINSE MM SCH ×2 (08:06→20:12)
[2022-03-22] MEDS: HYDROCORTISONE SOD SUCC 100 MG/2 ML VIAL IVP SCH (08:06)
[2022-03-22] MEDS: DOCUSATE SODIUM 100 MG CAPSULE PO SCH ×2 (08:06→20:12)
[2022-03-22 08:15] LABS: BASOPHILS % (AUTO) 0.4 % (0.0-2.0); EOSINOPHILS % (AUTO) 0.8 % (1.0-6.0); HEMATOCRIT 26.9 % (41-53); HEMOGLOBIN 9.3 g/dL (13.5-17.5); LYMPHOCYTES % (AUTO) 4.9 % (22.0-44.0); MEAN CORPUSCULAR HEMOGLOBIN 33.8 pg (26.0-34.0); MEAN CORPUSCULAR HGB CONC 34.7 G/dL (31.0-37.0); MEAN CORPUSCULAR VOLUME 97 fL (80-100); MONOCYTES % (AUTO) 5.2 % (2.0-9.0); NEUTROPHILS # (AUTO) 17.8 K/uL (1.8-7.7); PLATELET COUNT (AUTO) 184 K/uL (150-450); RED BLOOD CELL COUNT(AUTO) 2.76 MIL/uL (4.50-5.90)
[2022-03-22 08:20] LABS: NEUTROPHILS % (AUTO) 88.7 % (40.0-70.0)
[2022-03-22 08:35] LABS: INR 1.3 (0.9-1.1); PROTHROMBIN TIME 13.2 SEC (9.4-11.6)
[2022-03-22 08:38] LABS: ALANINE AMINOTRANSFERASE 22 U/L (12-78); ALBUMIN 2.3 g/dL (3.4-5.0); ALKALINE PHOSPHATASE 74 U/L (46-116); ANION GAP 8 mmol/L (8-16); ASPARTATE AMINOTRANSFERASE 37 U/L (15-37); BILIRUBIN,TOTAL 0.9 mg/dL (0.1-1.0); C-REACTIVE PROTEIN QUANT 7.88 mg/dL (0.00-0.30); CALCIUM, TOTAL 8.2 mg/dL (8.8-10.5); CARBON DIOXIDE 31 mmol/L (22-29); CHLORIDE 105 mmol/L (98-107); CREATININE 0.46 mg/dL (0.60-1.30); GLUCOSE,RANDOM 100 mg/dL (70-110); SODIUM SERUM 144 mmol/L (136-145); TOTAL PROTEIN, SERUM 5.1 g/dL (6.4-8.2); UREA NITROGEN, BLOOD 12 mg/dL (7-18)
[2022-03-22 08:41] LABS: GLOMERULAR FILTR. RATE CALC > 60 mL/min (>60); POTASSIUM 2.8 mmol/L (3.5-5.1)
[2022-03-22] MEDS: POTASSIUM CHL 10 MEQ/WATER 50 ML IV PRN ×7 (08:50→17:49)
[2022-03-22] MEDS ORDERED: POTASSIUM CHLORIDE 10% 40 MEQ/30 ML LIQUID UDCUP NG ONE (09:00)
[2022-03-22 11:11] LABS: GLUCOSE,POINT OF CARE 102 MG/DL (70-110)
[2022-03-22 12:00] VITALS: BP 93/49
[2022-03-22 12:51] LABS: APPEARANCE,URINE CLEAR (CLEAR); BILIRUBIN,URINE NEGATIVE (NEGATIVE); GLUCOSE, URINE (UA) NEGATIVE (NEGATIVE); KETONES,URINE NEGATIVE (NEGATIVE); LEUKOCYTE ESTERASE ,URINE NEGATIVE (NEGATIVE); NITRATE,URINE NEGATIVE (NEGATIVE); OCCULT BLOOD,URINE TRACE (NEGATIVE); PH,URINE 5.5 (5.0-8.0); PROTEIN,URINE NEGATIVE (NEGATIVE); SPECIFIC GRAVITIY, URINE 1.011 (1.003-1.030); UROBILINOGEN,URINE <=1.0 mg/dL (<=1.0)
[2022-03-22 13:06] LABS: BACTERIA,URINE None Seen /HPF (None Seen); RBC,URINE 0-2 /HPF (0-2); SQUAMOUS EPITHELIAL CELL,UR Few /LPF (None Seen); WBC,URINE 0-2 /HPF (0-5)
[2022-03-22] MEDS: MetroNIDAZOLE 500 MG TABLET PO SCH (15:57)
[2022-03-22] MEDS: DEXMEDETOMIDINE HCL 400 MCG in SODIUM CHLORIDE 0.9% 96 ML IV PRN (15:58)
[2022-03-22 16:00] VITALS: BP 104/68
[2022-03-22 17:38] LABS: BASOPHILS % (AUTO) 0.2 % (0.0-2.0); EOSINOPHILS % (AUTO) 0.5 % (1.0-6.0); HEMATOCRIT 23.5 % (41-53); LYMPHOCYTES # (AUTO) 0.7 K/uL (1.0-4.8); LYMPHOCYTES % (AUTO) 4.5 % (22.0-44.0); MEAN CORPUSCULAR HEMOGLOBIN 33.1 pg (26.0-34.0); MEAN CORPUSCULAR VOLUME 97 fL (80-100); MONOCYTES # (AUTO) 0.8 K/uL (0.1-1.0); MONOCYTES % (AUTO) 5.1 % (2.0-9.0); NEUTROPHILS # (AUTO) 13.4 K/uL (1.8-7.7); PLATELET COUNT (AUTO) 163 K/uL (150-450); RED BLOOD CELL COUNT(AUTO) 2.42 MIL/uL (4.50-5.90); RED CELL DISTRIBUTION WIDTH 19.7 % (11.5-14.5)
[2022-03-22 17:39] LABS: NEUTROPHILS % (AUTO) 89.7 % (40.0-70.0)
[2022-03-22] MEDS: CefTRIAXone SODIUM 2 GM in DEXTROSE 5%-WATER 50 ML IV SCH (17:40)
[2022-03-22 17:48] LABS: INR 1.3 (0.9-1.1)
[2022-03-22 19:37] LABS: GLUCOSE,POINT OF CARE 104 MG/DL (70-110)
[2022-03-22 20:00] VITALS: BP 106/58
[2022-03-22 22:16] LABS: GLUCOSE,POINT OF CARE 121 MG/DL (70-110)
[2022-03-23] VITALS (7 sets, daily range): BP systolic 106–160; BP diastolic 60–111
[2022-03-23] MEDS: ACETAMINOPHEN 325 MG TABLET PO PRN ×4 (00:26→23:33)
[2022-03-23] MEDS ORDERED: SODIUM CHLORIDE 0.9% 250 ML IV ONE (01:46)
[2022-03-23] MEDS: FentaNYL CIT 1000MCG/0.9% NACL 100 ML IV PRN ×3 (01:48→21:31)
[2022-03-23] MEDS: PROPOFOL 1000 MG/ISO-OSM 100 ML IV PRN ×3 (01:49→21:32)
[2022-03-23] MEDS: ACETYLCYSTEINE 10% 100 MG/ML 4 ML NEB SOLUTION NEB SCH ×6 (03:38→22:15)
[2022-03-23 05:41] LABS: GLUCOSE,POINT OF CARE 94 MG/DL (70-110)
[2022-03-23 05:42] LABS: BASOPHILS % (AUTO) 0.2 % (0.0-2.0); EOSINOPHILS % (AUTO) 1.5 % (1.0-6.0); HEMOGLOBIN 8.1 g/dL (13.5-17.5); LYMPHOCYTES # (AUTO) 1.2 K/uL (1.0-4.8); LYMPHOCYTES % (AUTO) 7.8 % (22.0-44.0); MEAN CORPUSCULAR HEMOGLOBIN 33.1 pg (26.0-34.0); MEAN CORPUSCULAR HGB CONC 33.7 G/dL (31.0-37.0); MEAN CORPUSCULAR VOLUME 98 fL (80-100); MONOCYTES % (AUTO) 6.4 % (2.0-9.0); NEUTROPHILS # (AUTO) 12.8 K/uL (1.8-7.7); NEUTROPHILS % (AUTO) 84.1 % (40.0-70.0); PLATELET COUNT (AUTO) 166 K/uL (150-450); RED BLOOD CELL COUNT(AUTO) 2.44 MIL/uL (4.50-5.90); RED CELL DISTRIBUTION WIDTH 19.4 % (11.5-14.5)
[2022-03-23 06:00] LABS: ANION GAP 4 mmol/L (8-16); C-REACTIVE PROTEIN QUANT 8.69 mg/dL (0.00-0.30); CALCIUM, TOTAL 8.1 mg/dL (8.8-10.5); CARBON DIOXIDE 34 mmol/L (22-29); CHLORIDE 103 mmol/L (98-107); CREATININE 0.49 mg/dL (0.60-1.30); GLUCOSE,RANDOM 97 mg/dL (70-110); POTASSIUM 3.2 mmol/L (3.5-5.1); SODIUM SERUM 141 mmol/L (136-145); UREA NITROGEN, BLOOD 13 mg/dL (7-18); VANCOMYCIN,RANDOM 15.2 mcg/mL (25.0-50.0)
[2022-03-23 06:03] LABS: GLOMERULAR FILTR. RATE CALC > 60 mL/min (>60)
[2022-03-23] MEDS: POTASSIUM CHL 10 MEQ/WATER 50 ML IV PRN ×3 (06:23→09:22)
[2022-03-23 07:16] LABS: GLUCOSE,POINT OF CARE 92 MG/DL (70-110)
[2022-03-23] MEDS: IPRATROPIUM BROMIDE 0.5 MG/2.5 ML NEB SOLUTION NEB PRN ×5 (07:37→22:00)
[2022-03-23] MEDS: ALBUTEROL SULFATE 2.5 MG/0.5 ML NEB SOLUTION NEB PRN ×5 (07:37→22:00)
[2022-03-23] MEDS: MetroNIDAZOLE 500 MG TABLET PO SCH ×4 (08:05→23:33)
[2022-03-23] MEDS: PANTOPRAZOLE SODIUM 40 MG/VIAL IVP SCH (08:06)
[2022-03-23] MEDS: FUROSEMIDE 40 MG/4 ML VIAL IVP SCH (08:06)
[2022-03-23] MEDS: METOCLOPRAMIDE HCL 5 MG/ML 2 ML VIAL IVP SCH ×2 (08:06→20:58)
[2022-03-23] MEDS: HYDROCORTISONE SOD SUCC 100 MG/2 ML VIAL IVP SCH (08:06)
[2022-03-23] MEDS: ETHYL ALCOHOL 62% ANTISEPTIC NASAL SANITIZER 0.6 ML AMPUL NASAL SCH ×2 (08:07→20:58)
[2022-03-23] MEDS: DOCUSATE SODIUM 100 MG CAPSULE PO SCH ×2 (08:07→20:58)
[2022-03-23] MEDS: CHLORHEXIDINE GLUCONATE 0.12% 15 ML UDCUP ORAL RINSE MM SCH ×2 (08:07→20:58)
[2022-03-23] MEDS: VANCOMYCIN 1GM/WATER(PEG/NADA) 200 ML IV SCH ×2 (08:08→20:54)
[2022-03-23 10:51] LABS: ABG BASE EXCESS 4.7 mmol/L (-2.0-3.0); ABG CARBOXYHEMOGLOBIN 1.5 % (0.0-1.5); ABG HCO3 27.6 mmol/L (22.0-26.0); ABG METHEMOGLOBIN 0.3 % (0.0-1.5); ABG OXYGEN CONTENT 12.6 mL/dL (15.0-23.0); ABG OXYHEMOGLOBIN 82.4 % (94.0-100.0); ABG PCO2 55 mmHg (35-45); ABG PH 7.358 (7.35-7.450); ABG TOTAL HEMOGLOBIN 10.9 G/dL (12.0-18.0); PO2, ARTERIAL BG 53.2 mmHg (88.0-96.0); SOURCE, BLOOD GAS ARTERIAL; TEMPERATURE, FAHRENHEIT, BG 100.3 FAHREN (96.0-98.6)
[2022-03-23 10:52] LABS: ABG OXYGEN SATURATION 83.9 % (95.0-98.0); O2 DEVICE,BLOOD GAS VENTILATOR (ROOM AIR); PEEP,BG 5 cm H2O; PRESSURE SUPPORT, BG 5 cm H2O; SITE, BLOOD GAS RT RADIAL; SPONTANEOUS VT, BG 647 ml; VENT MODE, BG Press. Support Vent. (ROOM AIR)
[2022-03-23] MEDS: CefTRIAXone SODIUM 2 GM in DEXTROSE 5%-WATER 50 ML IV SCH (17:17)
[2022-03-23 21:06] LABS: GLUCOSE,POINT OF CARE 116 MG/DL (70-110)
[2022-03-23 21:06] LABS: GLUCOSE,POINT OF CARE 108 MG/DL (70-110)
[2022-03-24] VITALS: BP 108/67
[2022-03-24] MEDS: IPRATROPIUM BROMIDE 0.5 MG/2.5 ML NEB SOLUTION NEB PRN ×4 (01:45→15:03)
[2022-03-24] MEDS: ALBUTEROL SULFATE 2.5 MG/0.5 ML NEB SOLUTION NEB PRN ×6 (01:45→23:20)
[2022-03-24] MEDS: ACETYLCYSTEINE 10% 100 MG/ML 4 ML NEB SOLUTION NEB SCH ×6 (02:01→23:19)
[2022-03-24] MEDS: FentaNYL CIT 1000MCG/0.9% NACL 100 ML IV PRN ×3 (03:41→21:08)
[2022-03-24] MEDS: PROPOFOL 1000 MG/ISO-OSM 100 ML IV PRN ×4 (03:42→23:10)
[2022-03-24 04:00] VITALS: BP 108/68
[2022-03-24 08:00] VITALS: BP 169/113
[2022-03-24] MEDS: MetroNIDAZOLE 500 MG TABLET PO SCH ×2 (08:02→15:03)
[2022-03-24] MEDS: PANTOPRAZOLE SODIUM 40 MG/VIAL IVP SCH (08:02)
[2022-03-24] MEDS: VANCOMYCIN 1GM/WATER(PEG/NADA) 200 ML IV SCH ×2 (08:02→20:36)
[2022-03-24] MEDS: ETHYL ALCOHOL 62% ANTISEPTIC NASAL SANITIZER 0.6 ML AMPUL NASAL SCH ×2 (08:03→20:36)
[2022-03-24] MEDS: CHLORHEXIDINE GLUCONATE 0.12% 15 ML UDCUP ORAL RINSE MM SCH ×2 (08:03→20:36)
[2022-03-24] MEDS: HYDROCORTISONE SOD SUCC 100 MG/2 ML VIAL IVP SCH (08:03)
[2022-03-24] MEDS: METOCLOPRAMIDE HCL 5 MG/ML 2 ML VIAL IVP SCH ×2 (08:03→20:36)
[2022-03-24] MEDS: DOCUSATE SODIUM 100 MG CAPSULE PO SCH ×2 (08:04→20:37)
[2022-03-24 08:07] LABS: GLUCOSE,POINT OF CARE 97 MG/DL (70-110)
[2022-03-24 08:07] LABS: GLUCOSE,POINT OF CARE 99 MG/DL (70-110)
[2022-03-24] MEDS: DEXMEDETOMIDINE HCL 400 MCG in SODIUM CHLORIDE 0.9% 96 ML IV PRN (08:35)
[2022-03-24] MEDS: ACETAMINOPHEN 325 MG TABLET PO PRN (09:37)
[2022-03-24 12:00] VITALS: BP 111/77
[2022-03-24 12:38] LABS: ALANINE AMINOTRANSFERASE 16 U/L (12-78); ALBUMIN 2.1 g/dL (3.4-5.0); ALKALINE PHOSPHATASE 72 U/L (46-116); ANION GAP 7 mmol/L (8-16); ASPARTATE AMINOTRANSFERASE 24 U/L (15-37); BILIRUBIN,TOTAL 0.7 mg/dL (0.1-1.0); C-REACTIVE PROTEIN QUANT 9.68 mg/dL (0.00-0.30); CALCIUM, TOTAL 8.2 mg/dL (8.8-10.5); CARBON DIOXIDE 32 mmol/L (22-29); CHLORIDE 102 mmol/L (98-107); CREATININE 0.47 mg/dL (0.60-1.30); GLOMERULAR FILTR. RATE CALC > 60 mL/min (>60); GLUCOSE,RANDOM 119 mg/dL (70-110); POTASSIUM 3.2 mmol/L (3.5-5.1); SODIUM SERUM 141 mmol/L (136-145); TOTAL PROTEIN, SERUM 5.4 g/dL (6.4-8.2); UREA NITROGEN, BLOOD 13 mg/dL (7-18)
[2022-03-24] MEDS ORDERED: IOHEXOL 300 MG/ML 100 ML VIAL ONE (13:45)
[2022-03-24] MEDS ORDERED: SODIUM CHLORIDE 0.9% 100 ML ONE (13:45)
[2022-03-24 14:17] LABS: ABG BASE EXCESS 3.3 mmol/L (-2.0-3.0); ABG CARBOXYHEMOGLOBIN 1.2 % (0.0-1.5); ABG HCO3 26.7 mmol/L (22.0-26.0); ABG METHEMOGLOBIN 0.3 % (0.0-1.5); ABG OXYGEN CONTENT 12.6 mL/dL (15.0-23.0); ABG OXYHEMOGLOBIN 83.4 % (94.0-100.0); ABG PCO2 46 mmHg (35-45); ABG PH 7.403 (7.35-7.450); ABG TOTAL HEMOGLOBIN 10.7 G/dL (12.0-18.0); SOURCE, BLOOD GAS ARTERIAL; TEMPERATURE, FAHRENHEIT, BG 99.2 FAHREN (96.0-98.6)
[2022-03-24 14:20] LABS: ABG OXYGEN SATURATION 84.7 % (95.0-98.0); SITE, BLOOD GAS RT RADIAL
[2022-03-24 14:21] LABS: O2 DEVICE,BLOOD GAS VENTILATOR (ROOM AIR); PEEP,BG 0 cm H2O; VENT MODE, BG Press. Support Vent. (ROOM AIR)
[2022-03-24 14:22] LABS: PRESSURE SUPPORT, BG 8 cm H2O; SPONTANEOUS VT, BG 648 ml
[2022-03-24] MEDS: POTASSIUM CHL 10 MEQ/WATER 50 ML IV PRN ×3 (14:37→16:04)
[2022-03-24 16:00] VITALS: BP 97/62
[2022-03-24] MEDS: CefTRIAXone SODIUM 2 GM in DEXTROSE 5%-WATER 50 ML IV SCH (17:53)
[2022-03-24 20:00] VITALS: BP 120/71
[2022-03-24] MEDS ORDERED: SODIUM CHLORIDE 0.9% 250 ML IV ONE (21:21)
[2022-03-25] VITALS: BP 102/60
[2022-03-25] MEDS: MetroNIDAZOLE 500 MG TABLET PO SCH ×2 (00:45→09:06)
[2022-03-25 01:16] LABS: GLUCOSE,POINT OF CARE 143 MG/DL (70-110)
[2022-03-25 01:16] LABS: GLUCOSE,POINT OF CARE 112 MG/DL (70-110)
[2022-03-25 01:41] LABS: GLUCOSE,POINT OF CARE 87 MG/DL (70-110)
[2022-03-25] MEDS: ACETYLCYSTEINE 10% 100 MG/ML 4 ML NEB SOLUTION NEB SCH ×6 (02:51→22:43)
[2022-03-25] MEDS: ALBUTEROL SULFATE 2.5 MG/0.5 ML NEB SOLUTION NEB PRN ×5 (02:52→22:43)
[2022-03-25] MEDS: PROPOFOL 1000 MG/ISO-OSM 100 ML IV PRN ×3 (03:20→21:41)
[2022-03-25 04:00] VITALS: BP 128/81
[2022-03-25 04:21] LABS: BASOPHILS % (AUTO) 0.4 % (0.0-2.0); EOSINOPHILS % (AUTO) 2.4 % (1.0-6.0); HEMATOCRIT 23.9 % (41-53); LYMPHOCYTES # (AUTO) 1.2 K/uL (1.0-4.8); LYMPHOCYTES % (AUTO) 11.4 % (22.0-44.0); MEAN CORPUSCULAR HEMOGLOBIN 33.1 pg (26.0-34.0); MEAN CORPUSCULAR HGB CONC 33.5 G/dL (31.0-37.0); MEAN CORPUSCULAR VOLUME 99 fL (80-100); MONOCYTES # (AUTO) 0.9 K/uL (0.1-1.0); MONOCYTES % (AUTO) 8.4 % (2.0-9.0); NEUTROPHILS # (AUTO) 8.4 K/uL (1.8-7.7); NEUTROPHILS % (AUTO) 77.4 % (40.0-70.0); PLATELET COUNT (AUTO) 203 K/uL (150-450); RED BLOOD CELL COUNT(AUTO) 2.42 MIL/uL (4.50-5.90); RED CELL DISTRIBUTION WIDTH 18.7 % (11.5-14.5)
[2022-03-25] MEDS: FentaNYL CIT 1000MCG/0.9% NACL 100 ML IV PRN ×3 (04:26→16:08)
[2022-03-25 04:38] LABS: ANION GAP 6 mmol/L (8-16); C-REACTIVE PROTEIN QUANT 6.78 mg/dL (0.00-0.30); CARBON DIOXIDE 33 mmol/L (22-29); CHLORIDE 104 mmol/L (98-107); CREATININE 0.44 mg/dL (0.60-1.30); GLOMERULAR FILTR. RATE CALC > 60 mL/min (>60); GLUCOSE,RANDOM 95 mg/dL (70-110); POTASSIUM 3.4 mmol/L (3.5-5.1); SODIUM SERUM 143 mmol/L (136-145); UREA NITROGEN, BLOOD 16 mg/dL (7-18); VANCOMYCIN,RANDOM 23.4 mcg/mL (25.0-50.0)
[2022-03-25 08:00] VITALS: BP 161/89
[2022-03-25] MEDS: DOCUSATE SODIUM 100 MG CAPSULE PO SCH ×3 (09:00→21:39)
[2022-03-25] MEDS: CHLORHEXIDINE GLUCONATE 0.12% 15 ML UDCUP ORAL RINSE MM SCH ×2 (09:00→21:39)
[2022-03-25] MEDS ORDERED: HYDROCORTISONE SOD SUCC 100 MG/2 ML VIAL IVP SCH (09:00)
[2022-03-25] MEDS: VANCOMYCIN 1GM/WATER(PEG/NADA) 200 ML IV SCH ×2 (09:05→19:55)
[2022-03-25] MEDS: METOCLOPRAMIDE HCL 5 MG/ML 2 ML VIAL IVP SCH ×2 (09:05→21:39)
[2022-03-25] MEDS: ETHYL ALCOHOL 62% ANTISEPTIC NASAL SANITIZER 0.6 ML AMPUL NASAL SCH ×2 (09:05→21:39)
[2022-03-25] MEDS: PANTOPRAZOLE SODIUM 40 MG/VIAL IVP SCH (09:06)
[2022-03-25] MEDS ORDERED: AcetaZOLAMIDE 250 MG TABLET PO ONE (09:15)
[2022-03-25 10:12] LABS: C.DIFF GDH ANTIGEN, Stool Negative (Negative); C.DIFF TOXINS A&B, Stool Negative (Negative)
[2022-03-25] MEDS: POTASSIUM CHL 10 MEQ/WATER 50 ML IV PRN ×5 (11:22→20:59)
[2022-03-25 12:00] VITALS: BP 89/59
[2022-03-25 13:01] LABS: GLUCOSE,POINT OF CARE 85 MG/DL (70-110)
[2022-03-25 13:01] LABS: GLUCOSE,POINT OF CARE 129 MG/DL (70-110)
[2022-03-25 16:00] VITALS: BP 150/71
[2022-03-25] MEDS: CefTRIAXone SODIUM 2 GM in DEXTROSE 5%-WATER 50 ML IV SCH (17:12)
[2022-03-25 18:11] LABS: GLUCOSE,POINT OF CARE 106 MG/DL (70-110)
[2022-03-25 20:00] VITALS: BP 95/61
[2022-03-26] VITALS: BP 104/64
[2022-03-26] MEDS: PROPOFOL 1000 MG/ISO-OSM 100 ML IV PRN ×4 (03:06→17:09)
[2022-03-26] MEDS: ACETYLCYSTEINE 10% 100 MG/ML 4 ML NEB SOLUTION NEB SCH ×6 (03:12→22:49)
[2022-03-26] MEDS: ALBUTEROL SULFATE 2.5 MG/0.5 ML NEB SOLUTION NEB PRN ×4 (03:12→14:58)
[2022-03-26 04:00] VITALS: BP 92/51
[2022-03-26] MEDS: FentaNYL CIT 1000MCG/0.9% NACL 100 ML IV PRN ×3 (04:32→17:09)
[2022-03-26 06:06] LABS: ALANINE AMINOTRANSFERASE 25 U/L (12-78); ALBUMIN 1.8 g/dL (3.4-5.0); ALKALINE PHOSPHATASE 69 U/L (46-116); ANION GAP 4 mmol/L (8-16); ASPARTATE AMINOTRANSFERASE 60 U/L (15-37); BILIRUBIN,TOTAL 0.4 mg/dL (0.1-1.0); CALCIUM, TOTAL 8.1 mg/dL (8.8-10.5); CARBON DIOXIDE 32 mmol/L (22-29); CHLORIDE 108 mmol/L (98-107); CREATININE 0.44 mg/dL (0.60-1.30); GLUCOSE,RANDOM 89 mg/dL (70-110); POTASSIUM 3.4 mmol/L (3.5-5.1); SODIUM SERUM 144 mmol/L (136-145); UREA NITROGEN, BLOOD 17 mg/dL (7-18)
[2022-03-26 06:09] LABS: GLOMERULAR FILTR. RATE CALC > 60 mL/min (>60)
[2022-03-26 06:36] LABS: GLUCOSE,POINT OF CARE 85 MG/DL (70-110)
[2022-03-26 06:37] LABS: GLUCOSE,POINT OF CARE 94 MG/DL (70-110)
[2022-03-26] MEDS: IPRATROPIUM BROMIDE 0.5 MG/2.5 ML NEB SOLUTION NEB PRN ×3 (07:40→14:58)
[2022-03-26 08:00] VITALS: BP 89/58
[2022-03-26] MEDS: VANCOMYCIN 1GM/WATER(PEG/NADA) 200 ML IV SCH ×2 (08:05→20:12)
[2022-03-26] MEDS: PANTOPRAZOLE SODIUM 40 MG/VIAL IVP SCH (08:05)
[2022-03-26] MEDS: CHLORHEXIDINE GLUCONATE 0.12% 15 ML UDCUP ORAL RINSE MM SCH ×2 (08:06→20:12)
[2022-03-26] MEDS: DOCUSATE SODIUM 100 MG CAPSULE PO SCH ×2 (08:06→20:12)
[2022-03-26] MEDS: METOCLOPRAMIDE HCL 5 MG/ML 2 ML VIAL IVP SCH ×2 (08:06→20:25)
[2022-03-26] MEDS: ETHYL ALCOHOL 62% ANTISEPTIC NASAL SANITIZER 0.6 ML AMPUL NASAL SCH ×2 (08:06→20:12)
[2022-03-26] MEDS: POTASSIUM CHL 10 MEQ/WATER 50 ML IV PRN ×5 (08:08→23:46)
[2022-03-26] MEDS: FUROSEMIDE 40 MG/4 ML VIAL IVP SCH (10:06)
[2022-03-26] MEDS: QUEtiapine FUMARATE 25 MG TABLET PO SCH ×2 (10:23→20:12)
[2022-03-26 12:00] VITALS: BP 126/76
[2022-03-26] MEDS: ACETAMINOPHEN 325 MG TABLET PO PRN (14:15)
[2022-03-26] MEDS ORDERED: MEBROFENIN TC99M/MCL ISOTOPE 1 EA INJ INJ ONE (15:25)
[2022-03-26 16:48] VITALS: BP 121/61
[2022-03-26] MEDS: CefTRIAXone SODIUM 2 GM in DEXTROSE 5%-WATER 50 ML IV SCH (17:08)
[2022-03-26 19:11] LABS: GLUCOSE,POINT OF CARE 91 MG/DL (70-110)
[2022-03-26 19:16] LABS: GLUCOSE,POINT OF CARE 82 MG/DL (70-110)
[2022-03-26 21:03] VITALS: BP 96/62
[2022-03-27] VITALS: BP 120/75
[2022-03-27] MEDS: PROPOFOL 1000 MG/ISO-OSM 100 ML IV PRN ×5 (00:20→19:46)
[2022-03-27] MEDS: POTASSIUM CHL 10 MEQ/WATER 50 ML IV PRN ×4 (00:25→06:13)
[2022-03-27] MEDS: FentaNYL CIT 1000MCG/0.9% NACL 100 ML IV PRN ×4 (01:29→20:29)
[2022-03-27 04:00] VITALS: BP_SYST 111; BP_SYST 95; BP_DIAS 66
[2022-03-27] MEDS: ACETYLCYSTEINE 10% 100 MG/ML 4 ML NEB SOLUTION NEB SCH ×6 (04:02→22:55)
[2022-03-27] MEDS: ALBUTEROL SULFATE 2.5 MG/0.5 ML NEB SOLUTION NEB PRN ×5 (04:02→22:55)
[2022-03-27] MEDS: IPRATROPIUM BROMIDE 0.5 MG/2.5 ML NEB SOLUTION NEB PRN ×3 (04:03→22:55)
[2022-03-27 04:14] LABS: HEMATOCRIT 22.1 % (41-53); HEMOGLOBIN 7.4 g/dL (13.5-17.5); LYMPHOCYTES # (AUTO) 0.9 K/uL (1.0-4.8); MEAN CORPUSCULAR HEMOGLOBIN 32.9 pg (26.0-34.0); MEAN CORPUSCULAR HGB CONC 33.4 G/dL (31.0-37.0); MEAN CORPUSCULAR VOLUME 99 fL (80-100); MONOCYTES # (AUTO) 0.6 K/uL (0.1-1.0); MONOCYTES % (AUTO) 6.3 % (2.0-9.0); NEUTROPHILS # (AUTO) 7.4 K/uL (1.8-7.7); NEUTROPHILS % (AUTO) 78.7 % (40.0-70.0); PLATELET COUNT (AUTO) 181 K/uL (150-450); RED BLOOD CELL COUNT(AUTO) 2.24 MIL/uL (4.50-5.90); RED CELL DISTRIBUTION WIDTH 18.1 % (11.5-14.5)
[2022-03-27] MEDS: ACETAMINOPHEN 325 MG TABLET PO PRN ×3 (04:15→22:08)
[2022-03-27 04:27] LABS: ANION GAP 4 mmol/L (8-16); C-REACTIVE PROTEIN QUANT 4.51 mg/dL (0.00-0.30); CALCIUM, TOTAL 8.2 mg/dL (8.8-10.5); CARBON DIOXIDE 33 mmol/L (22-29); CHLORIDE 106 mmol/L (98-107); CREATININE 0.43 mg/dL (0.60-1.30); GLUCOSE,RANDOM 89 mg/dL (70-110); POTASSIUM 3.6 mmol/L (3.5-5.1); SODIUM SERUM 143 mmol/L (136-145); UREA NITROGEN, BLOOD 14 mg/dL (7-18)
[2022-03-27 04:30] LABS: GLOMERULAR FILTR. RATE CALC > 60 mL/min (>60)
[2022-03-27] MEDS: QUEtiapine FUMARATE 25 MG TABLET PO SCH ×2 (07:53→19:45)
[2022-03-27] MEDS: FUROSEMIDE 40 MG/4 ML VIAL IVP SCH (07:53)
[2022-03-27] MEDS: METOCLOPRAMIDE HCL 5 MG/ML 2 ML VIAL IVP SCH ×2 (07:53→19:45)
[2022-03-27] MEDS: PANTOPRAZOLE SODIUM 40 MG/VIAL IVP SCH (07:53)
[2022-03-27] MEDS: DOCUSATE SODIUM 100 MG CAPSULE PO SCH ×2 (07:53→20:11)
[2022-03-27] MEDS: ETHYL ALCOHOL 62% ANTISEPTIC NASAL SANITIZER 0.6 ML AMPUL NASAL SCH ×2 (07:53→20:11)
[2022-03-27] MEDS: CHLORHEXIDINE GLUCONATE 0.12% 15 ML UDCUP ORAL RINSE MM SCH ×2 (07:54→20:11)
[2022-03-27 08:00] VITALS: BP 108/71
[2022-03-27] MEDS: VANCOMYCIN 1GM/WATER(PEG/NADA) 200 ML IV SCH ×2 (08:12→19:47)
[2022-03-27 11:31] LABS: GLUCOSE,POINT OF CARE 91 MG/DL (70-110)
[2022-03-27 12:00] VITALS: BP 91/59
[2022-03-27] MEDS ORDERED: DEXTROSE 50%-WATER 25 GM/50 ML SYRINGE IVP ONE (13:30)
[2022-03-27] MEDS ORDERED: ROCURONIUM BROMIDE 10 MG/ML 5 ML VIAL IVP ONE (15:15)
[2022-03-27 16:00] VITALS: BP 148/89
[2022-03-27] MEDS: CefTRIAXone SODIUM 2 GM in DEXTROSE 5%-WATER 50 ML IV SCH (17:05)
[2022-03-27 18:11] LABS: GLUCOSE,POINT OF CARE 77 MG/DL (70-110)
[2022-03-27 18:26] LABS: GLUCOSE,POINT OF CARE 104 MG/DL (70-110)
[2022-03-27 18:27] LABS: GLUCOSE,POINT OF CARE 95 MG/DL (70-110)
[2022-03-27 18:27] LABS: GLUCOSE,POINT OF CARE 75 MG/DL (70-110)
[2022-03-27 20:00] VITALS: BP 100/60
[2022-03-28] VITALS: BP 118/70
[2022-03-28] MEDS: FentaNYL CIT 1000MCG/0.9% NACL 100 ML IV PRN ×4 (02:31→21:19)
[2022-03-28 04:00] VITALS: BP 114/68
[2022-03-28] MEDS: IPRATROPIUM BROMIDE 0.5 MG/2.5 ML NEB SOLUTION NEB PRN ×3 (04:23→22:57)
[2022-03-28] MEDS: ALBUTEROL SULFATE 2.5 MG/0.5 ML NEB SOLUTION NEB PRN ×6 (04:23→22:57)
[2022-03-28] MEDS: ACETYLCYSTEINE 10% 100 MG/ML 4 ML NEB SOLUTION NEB SCH ×6 (04:24→22:57)
[2022-03-28] MEDS: PROPOFOL 1000 MG/ISO-OSM 100 ML IV PRN ×4 (04:40→19:56)
[2022-03-28] MEDS: ACETAMINOPHEN 325 MG TABLET PO PRN (05:20)
[2022-03-28 05:21] LABS: BASOPHILS % (AUTO) 0.7 % (0.0-2.0); EOSINOPHILS % (AUTO) 3.3 % (1.0-6.0); HEMATOCRIT 23.7 % (41-53); HEMOGLOBIN 7.7 g/dL (13.5-17.5); LYMPHOCYTES # (AUTO) 0.7 K/uL (1.0-4.8); LYMPHOCYTES % (AUTO) 7.5 % (22.0-44.0); MEAN CORPUSCULAR HEMOGLOBIN 32.9 pg (26.0-34.0); MEAN CORPUSCULAR HGB CONC 32.5 G/dL (31.0-37.0); MEAN CORPUSCULAR VOLUME 101 fL (80-100); MONOCYTES # (AUTO) 0.6 K/uL (0.1-1.0); MONOCYTES % (AUTO) 5.7 % (2.0-9.0); NEUTROPHILS # (AUTO) 8.1 K/uL (1.8-7.7); NEUTROPHILS % (AUTO) 82.8 % (40.0-70.0); PLATELET COUNT (AUTO) 139 K/uL (150-450); RED BLOOD CELL COUNT(AUTO) 2.34 MIL/uL (4.50-5.90); RED CELL DISTRIBUTION WIDTH 18.6 % (11.5-14.5)
[2022-03-28 05:34] LABS: ANION GAP 5 mmol/L (8-16); CALCIUM, TOTAL 8.1 mg/dL (8.8-10.5); CARBON DIOXIDE 33 mmol/L (22-29); CHLORIDE 104 mmol/L (98-107); CREATININE 0.48 mg/dL (0.60-1.30); GLUCOSE,RANDOM 106 mg/dL (70-110); POTASSIUM 3.6 mmol/L (3.5-5.1); SODIUM SERUM 142 mmol/L (136-145); UREA NITROGEN, BLOOD 12 mg/dL (7-18); VANCOMYCIN,RANDOM 22.3 mcg/mL (25.0-50.0)
[2022-03-28 05:41] LABS: GLOMERULAR FILTR. RATE CALC > 60 mL/min (>60)
[2022-03-28] MEDS ORDERED: MAGNESIUM SULFATE 2 GM/WATER 50 ML IV PRN ×2 (06:00)
[2022-03-28] MEDS ORDERED: MAGNESIUM CARBONATE 1 GM/5 ML LIQUID 22 ML UDCUP NG PRN (06:00)
[2022-03-28] MEDS ORDERED: MAGNESIUM OXIDE 400 MG TABLET PO PRN ×2 (06:00)
[2022-03-28] MEDS ORDERED: MAGNESIUM SULFATE 4 GM/WATER 100 ML IV PRN (06:00)
[2022-03-28] MEDS: MAGNESIUM SULFATE 4 GM/WATER 100 ML IV PRN (06:43)
[2022-03-28 07:21] LABS: GLUCOSE,POINT OF CARE 93 MG/DL (70-110)
[2022-03-28 08:00] VITALS: BP 104/67
[2022-03-28] MEDS ORDERED: SODIUM CHLORIDE 0.9% 250 ML IV ONE (08:12)
[2022-03-28] MEDS: ETHYL ALCOHOL 62% ANTISEPTIC NASAL SANITIZER 0.6 ML AMPUL NASAL SCH ×2 (08:14→21:01)
[2022-03-28] MEDS: QUEtiapine FUMARATE 25 MG TABLET PO SCH ×2 (08:14→21:01)
[2022-03-28] MEDS: DOCUSATE SODIUM 100 MG CAPSULE PO SCH ×2 (08:14→21:00)
[2022-03-28] MEDS: CHLORHEXIDINE GLUCONATE 0.12% 15 ML UDCUP ORAL RINSE MM SCH ×2 (08:14→21:01)
[2022-03-28] MEDS: PANTOPRAZOLE SODIUM 40 MG/VIAL IVP SCH (08:15)
[2022-03-28] MEDS: METOCLOPRAMIDE HCL 5 MG/ML 2 ML VIAL IVP SCH ×2 (08:15→21:02)
[2022-03-28] MEDS: VANCOMYCIN 1GM/WATER(PEG/NADA) 200 ML IV SCH (08:15)
[2022-03-28] MEDS: FUROSEMIDE 40 MG/4 ML VIAL IVP SCH (08:15)
[2022-03-28 08:57] LABS: ALBUMIN 1.8 g/dL (3.4-5.0)
[2022-03-28 12:00] VITALS: BP 102/65
[2022-03-28] MEDS: POTASSIUM CHL 10 MEQ/WATER 50 ML IV PRN ×6 (13:08→19:57)
[2022-03-28 16:00] VITALS: BP 110/74
[2022-03-28 17:18] LABS: INR 1.2 (0.9-1.1); PROTHROMBIN TIME 12.2 SEC (9.4-11.6)
[2022-03-28] MEDS: CefTRIAXone SODIUM 2 GM in DEXTROSE 5%-WATER 50 ML IV SCH (17:50)
[2022-03-28 20:00] VITALS: BP 102/66
[2022-03-28 20:16] LABS: GLUCOSE,POINT OF CARE 101 MG/DL (70-110)
[2022-03-28 20:17] LABS: GLUCOSE,POINT OF CARE 107 MG/DL (70-110)
[2022-03-28 20:17] LABS: GLUCOSE,POINT OF CARE 89 MG/DL (70-110)
[2022-03-28] MEDS: VALPROIC ACID 250 MG/5 ML SOLUTION UDCUP PEG SCH (21:01)
[2022-03-28] MEDS: VANCOMYCIN HCL 1 GM in DEXTROSE 5%-WATER 250 ML IV SCH (21:01)
[2022-03-29] VITALS: BP 104/68
[2022-03-29] MEDS: PROPOFOL 1000 MG/ISO-OSM 100 ML IV PRN ×4 (00:39→18:51)
[2022-03-29 04:00] VITALS: BP 100/62
[2022-03-29] MEDS: ALBUTEROL SULFATE 2.5 MG/0.5 ML NEB SOLUTION NEB PRN ×6 (04:08→22:54)
[2022-03-29] MEDS: ACETYLCYSTEINE 10% 100 MG/ML 4 ML NEB SOLUTION NEB SCH ×6 (04:08→22:54)
[2022-03-29] MEDS: IPRATROPIUM BROMIDE 0.5 MG/2.5 ML NEB SOLUTION NEB PRN ×6 (04:08→22:54)
[2022-03-29 04:51] LABS: GLUCOSE,POINT OF CARE 109 MG/DL (70-110)
[2022-03-29 05:43] LABS: ANION GAP 4 mmol/L (8-16); CALCIUM, TOTAL 8.3 mg/dL (8.8-10.5); CARBON DIOXIDE 32 mmol/L (22-29); CHLORIDE 105 mmol/L (98-107); CREATININE 0.37 mg/dL (0.60-1.30); GLUCOSE,RANDOM 91 mg/dL (70-110); POTASSIUM 3.8 mmol/L (3.5-5.1); SODIUM SERUM 141 mmol/L (136-145); UREA NITROGEN, BLOOD 9 mg/dL (7-18)
[2022-03-29 05:44] LABS: GLOMERULAR FILTR. RATE CALC > 60 mL/min (>60)
[2022-03-29] MEDS: FentaNYL CIT 1000MCG/0.9% NACL 100 ML IV PRN (05:50)
[2022-03-29] MEDS: ACETAMINOPHEN 325 MG TABLET PO PRN ×2 (05:53→15:42)
[2022-03-29 08:00] VITALS: BP 107/61
[2022-03-29] MEDS ORDERED: CeFAZolin 1 GM/DEXTROSE 50 ML IV ONE (08:15)
[2022-03-29] MEDS: VANCOMYCIN HCL 1 GM in DEXTROSE 5%-WATER 250 ML IV SCH ×2 (09:07→20:05)
[2022-03-29] MEDS: METOCLOPRAMIDE HCL 5 MG/ML 2 ML VIAL IVP SCH ×2 (09:45→20:06)
[2022-03-29] MEDS: QUEtiapine FUMARATE 25 MG TABLET PO SCH ×2 (09:45→20:06)
[2022-03-29] MEDS: PANTOPRAZOLE SODIUM 40 MG/VIAL IVP SCH (09:45)
[2022-03-29] MEDS: ETHYL ALCOHOL 62% ANTISEPTIC NASAL SANITIZER 0.6 ML AMPUL NASAL SCH ×2 (09:46→20:05)
[2022-03-29] MEDS: FentaNYL 50 MCG/HOUR PATCH TD SCH (09:46)
[2022-03-29] MEDS: FUROSEMIDE 40 MG/4 ML VIAL IVP SCH (09:46)
[2022-03-29] MEDS: DOCUSATE SODIUM 100 MG CAPSULE PO SCH ×2 (09:46→20:06)
[2022-03-29] MEDS: CHLORHEXIDINE GLUCONATE 0.12% 15 ML UDCUP ORAL RINSE MM SCH ×2 (09:46→20:06)
[2022-03-29] MEDS ORDERED: MAGNESIUM SULFATE 3 GM in DEXTROSE 5%-WATER 100 ML IV ONE (10:00)
[2022-03-29 12:00] VITALS: BP 143/80
[2022-03-29 12:56] LABS: GLUCOSE,POINT OF CARE 91 MG/DL (70-110)
[2022-03-29] MEDS ORDERED: SODIUM CHLORIDE 0.9% 250 ML IV ONE (14:04)
[2022-03-29 16:00] VITALS: BP 101/63
[2022-03-29] MEDS: LORazepam 2 MG/ML VIAL IVP PRN (17:08)
[2022-03-29] MEDS: CefTRIAXone SODIUM 2 GM in DEXTROSE 5%-WATER 50 ML IV SCH (17:08)
[2022-03-29 18:22] LABS: GLUCOSE,POINT OF CARE 106 MG/DL (70-110)
[2022-03-29 20:00] VITALS: BP 117/60
[2022-03-29] MEDS: BuPROPion HCL 75 MG TABLET NG SCH (20:06)
[2022-03-29] MEDS: VALPROIC ACID 250 MG/5 ML SOLUTION UDCUP PEG SCH (20:06)
[2022-03-29 23:52] LABS: GLUCOSE,POINT OF CARE 88 MG/DL (70-110)
[2022-03-30] VITALS: BP 105/68
[2022-03-30] MEDS: PROPOFOL 1000 MG/ISO-OSM 100 ML IV PRN ×5 (00:37→22:03)
[2022-03-30 03:36] LABS: GLUCOSE,POINT OF CARE 90 MG/DL (70-110)
[2022-03-30] MEDS: ACETYLCYSTEINE 10% 100 MG/ML 4 ML NEB SOLUTION NEB SCH ×6 (03:45→22:34)
[2022-03-30] MEDS: ALBUTEROL SULFATE 2.5 MG/0.5 ML NEB SOLUTION NEB PRN ×6 (03:45→22:34)
[2022-03-30] MEDS: IPRATROPIUM BROMIDE 0.5 MG/2.5 ML NEB SOLUTION NEB PRN ×6 (03:45→22:34)
[2022-03-30 04:00] VITALS: BP 134/78
[2022-03-30] MEDS: ACETAMINOPHEN 325 MG TABLET PO PRN ×2 (04:28→17:29)
[2022-03-30 05:44] LABS: ANION GAP 3 mmol/L (8-16); CALCIUM, TOTAL 8.3 mg/dL (8.8-10.5); CARBON DIOXIDE 34 mmol/L (22-29); CHLORIDE 102 mmol/L (98-107); CREATININE 0.35 mg/dL (0.60-1.30); GLUCOSE,RANDOM 91 mg/dL (70-110); POTASSIUM 3.4 mmol/L (3.5-5.1); SODIUM SERUM 139 mmol/L (136-145); UREA NITROGEN, BLOOD 7 mg/dL (7-18)
[2022-03-30 05:48] LABS: GLOMERULAR FILTR. RATE CALC > 60 mL/min (>60)
[2022-03-30] MEDS: LORazepam 2 MG/ML VIAL IVP PRN (05:50)
[2022-03-30 06:49] LABS: PHOSPHORUS 4.3 mg/dL (2.5-4.9)
[2022-03-30 08:00] VITALS: BP 108/64
[2022-03-30] MEDS: POTASSIUM CHL 10 MEQ/WATER 50 ML IV PRN (08:29)
[2022-03-30] MEDS: VANCOMYCIN HCL 1 GM in DEXTROSE 5%-WATER 250 ML IV SCH ×2 (08:29→19:42)
[2022-03-30] MEDS: CHLORHEXIDINE GLUCONATE 0.12% 15 ML UDCUP ORAL RINSE MM SCH ×2 (08:30→20:07)
[2022-03-30] MEDS: QUEtiapine FUMARATE 25 MG TABLET PO SCH (08:30)
[2022-03-30] MEDS: METOCLOPRAMIDE HCL 5 MG/ML 2 ML VIAL IVP SCH ×2 (08:30→20:08)
[2022-03-30] MEDS ORDERED: POTASSIUM CHLORIDE 20 MEQ ER TABLET PO ONE (08:30)
[2022-03-30] MEDS ORDERED: MAGNESIUM SULFATE 3 GM in DEXTROSE 5%-WATER 100 ML IV ONE (08:30)
[2022-03-30] MEDS: BuPROPion HCL 75 MG TABLET NG SCH ×2 (08:30→20:09)
[2022-03-30] MEDS: DOCUSATE SODIUM 100 MG CAPSULE PO SCH ×2 (08:30→20:09)
[2022-03-30] MEDS: FUROSEMIDE 40 MG/4 ML VIAL IVP SCH (08:30)
[2022-03-30] MEDS: PANTOPRAZOLE SODIUM 40 MG/VIAL IVP SCH (08:31)
[2022-03-30] MEDS: ETHYL ALCOHOL 62% ANTISEPTIC NASAL SANITIZER 0.6 ML AMPUL NASAL SCH ×2 (10:23→20:09)
[2022-03-30 12:00] VITALS: BP 110/65
[2022-03-30 16:00] VITALS: BP 114/68
[2022-03-30] MEDS: LORazepam 1 MG TABLET NG PRN (16:33)
[2022-03-30] MEDS: CefTRIAXone SODIUM 2 GM in DEXTROSE 5%-WATER 50 ML IV SCH (17:07)
[2022-03-30 17:56] LABS: GLUCOSE,POINT OF CARE 93 MG/DL (70-110)
[2022-03-30 20:00] VITALS: BP 89/56
[2022-03-30] MEDS: VALPROIC ACID 250 MG/5 ML SOLUTION UDCUP PEG SCH (20:08)
[2022-03-30] MEDS: QUEtiapine FUMARATE 25 MG TABLET NG SCH (20:08)
[2022-03-30 20:46] LABS: GLUCOSE,POINT OF CARE 85 MG/DL (70-110)
[2022-03-30 20:46] LABS: GLUCOSE,POINT OF CARE 79 MG/DL (70-110)
[2022-03-31] VITALS: BP 91/58
[2022-03-31] MEDS ORDERED: SODIUM CHLORIDE 0.9% 250 ML IV ONE (01:27)
[2022-03-31] MEDS: ACETYLCYSTEINE 10% 100 MG/ML 4 ML NEB SOLUTION NEB SCH ×6 (02:50→22:33)
[2022-03-31] MEDS: ALBUTEROL SULFATE 2.5 MG/0.5 ML NEB SOLUTION NEB PRN ×6 (02:50→22:33)
[2022-03-31] MEDS: IPRATROPIUM BROMIDE 0.5 MG/2.5 ML NEB SOLUTION NEB PRN ×4 (02:50→15:26)
[2022-03-31] MEDS: PROPOFOL 1000 MG/ISO-OSM 100 ML IV PRN ×4 (02:58→20:38)
[2022-03-31 04:00] VITALS: BP 102/58
[2022-03-31 06:18] LABS: ANION GAP 4 mmol/L (8-16); CALCIUM, TOTAL 8.3 mg/dL (8.8-10.5); CARBON DIOXIDE 34 mmol/L (22-29); CHLORIDE 101 mmol/L (98-107); CREATININE 0.35 mg/dL (0.60-1.30); GLUCOSE,RANDOM 93 mg/dL (70-110); PHOSPHORUS 4.2 mg/dL (2.5-4.9); POTASSIUM 3.4 mmol/L (3.5-5.1); SODIUM SERUM 139 mmol/L (136-145); UREA NITROGEN, BLOOD 5 mg/dL (7-18); VANCOMYCIN,RANDOM 19.6 mcg/mL (25.0-50.0)
[2022-03-31 06:33] LABS: GLOMERULAR FILTR. RATE CALC > 60 mL/min (>60)
[2022-03-31] MEDS: POTASSIUM CHLORIDE 20 MEQ ER TABLET PO PRN (07:03)
[2022-03-31 08:00] VITALS: BP 101/48
[2022-03-31] MEDS: POTASSIUM CHL 10 MEQ/WATER 50 ML IV SCH ×2 (08:15→09:15)
[2022-03-31] MEDS: VANCOMYCIN HCL 1 GM in DEXTROSE 5%-WATER 250 ML IV SCH ×2 (08:17→20:38)
[2022-03-31] MEDS: DOCUSATE SODIUM 100 MG CAPSULE PO SCH ×2 (09:00→21:02)
[2022-03-31] MEDS ORDERED: MAGNESIUM SULFATE 3 GM in DEXTROSE 5%-WATER 100 ML IV ONE (09:00)
[2022-03-31] MEDS: ETHYL ALCOHOL 62% ANTISEPTIC NASAL SANITIZER 0.6 ML AMPUL NASAL SCH ×2 (09:18→21:01)
[2022-03-31] MEDS: CHLORHEXIDINE GLUCONATE 0.12% 15 ML UDCUP ORAL RINSE MM SCH ×2 (09:19→21:01)
[2022-03-31] MEDS: BuPROPion HCL 75 MG TABLET NG SCH ×2 (09:23→21:01)
[2022-03-31] MEDS: QUEtiapine FUMARATE 25 MG TABLET NG SCH ×2 (09:24→21:01)
[2022-03-31] MEDS: PANTOPRAZOLE SODIUM 40 MG/VIAL IVP SCH (09:24)
[2022-03-31] MEDS: METOCLOPRAMIDE HCL 5 MG/ML 2 ML VIAL IVP SCH ×2 (09:24→21:01)
[2022-03-31] MEDS: FUROSEMIDE 20 MG/2 ML VIAL IVP SCH (09:24)
[2022-03-31 10:01] LABS: GLUCOSE,POINT OF CARE 90 MG/DL (70-110)
[2022-03-31 10:06] LABS: GLUCOSE,POINT OF CARE 95 MG/DL (70-110)
[2022-03-31 12:00] VITALS: BP 110/65
[2022-03-31 13:11] LABS: GLUCOSE,POINT OF CARE 92 MG/DL (70-110)
[2022-03-31] MEDS: LORazepam 1 MG TABLET NG PRN (14:16)
[2022-03-31 16:00] VITALS: BP 118/70
[2022-03-31] MEDS: ACETAMINOPHEN 325 MG TABLET PO PRN (16:25)
[2022-03-31] MEDS: CefTRIAXone SODIUM 2 GM in DEXTROSE 5%-WATER 50 ML IV SCH (18:39)
[2022-03-31 20:00] VITALS: BP 139/88
[2022-03-31] MEDS: VALPROIC ACID 250 MG/5 ML SOLUTION UDCUP PEG SCH (21:01)
[2022-03-31] MEDS: RisperiDONE 3 MG TABLET PO SCH (21:02)
[2022-04-01] VITALS: BP 97/59
[2022-04-01] MEDS: LORazepam 1 MG TABLET NG PRN (01:56)
[2022-04-01] MEDS: PROPOFOL 1000 MG/ISO-OSM 100 ML IV PRN ×2 (01:58→12:03)
[2022-04-01] MEDS: ALBUTEROL SULFATE 2.5 MG/0.5 ML NEB SOLUTION NEB PRN ×4 (02:45→18:31)
[2022-04-01] MEDS: ACETYLCYSTEINE 10% 100 MG/ML 4 ML NEB SOLUTION NEB SCH ×6 (02:46→18:31)
[2022-04-01 04:00] VITALS: BP 127/61
[2022-04-01 05:37] LABS: BASOPHILS % (AUTO) 0.8 % (0.0-2.0); EOSINOPHILS % (AUTO) 3.6 % (1.0-6.0); HEMATOCRIT 21.8 % (41-53); HEMOGLOBIN 7.3 g/dL (13.5-17.5); LYMPHOCYTES # (AUTO) 0.6 K/uL (1.0-4.8); LYMPHOCYTES % (AUTO) 7.9 % (22.0-44.0); MEAN CORPUSCULAR HEMOGLOBIN 32.5 pg (26.0-34.0); MEAN CORPUSCULAR HGB CONC 33.4 G/dL (31.0-37.0); MEAN CORPUSCULAR VOLUME 97 fL (80-100); MONOCYTES # (AUTO) 0.4 K/uL (0.1-1.0); MONOCYTES % (AUTO) 4.9 % (2.0-9.0); NEUTROPHILS # (AUTO) 6.4 K/uL (1.8-7.7); NEUTROPHILS % (AUTO) 82.8 % (40.0-70.0); PLATELET COUNT (AUTO) 143 K/uL (150-450); RED BLOOD CELL COUNT(AUTO) 2.24 MIL/uL (4.50-5.90); RED CELL DISTRIBUTION WIDTH 16.4 % (11.5-14.5)
[2022-04-01 05:41] LABS: GLUCOSE,POINT OF CARE 119 MG/DL (70-110)
[2022-04-01 05:45] LABS: ANION GAP 4 mmol/L (8-16); C-REACTIVE PROTEIN QUANT 8.43 mg/dL (0.00-0.30); CALCIUM, TOTAL 8.4 mg/dL (8.8-10.5); CARBON DIOXIDE 36 mmol/L (22-29); CHLORIDE 101 mmol/L (98-107); CREATININE 0.42 mg/dL (0.60-1.30); GLOMERULAR FILTR. RATE CALC > 60 mL/min (>60); GLUCOSE,RANDOM 112 mg/dL (70-110); POTASSIUM 3.1 mmol/L (3.5-5.1); SODIUM SERUM 141 mmol/L (136-145); UREA NITROGEN, BLOOD 5 mg/dL (7-18)
[2022-04-01 05:47] LABS: MAGNESIUM 1.3 mg/dL (1.80-2.40); PHOSPHORUS 4.1 mg/dL (2.5-4.9)
[2022-04-01] MEDS: POTASSIUM CHLORIDE 20 MEQ ER TABLET PO PRN (06:35)
[2022-04-01] MEDS ORDERED: POTASSIUM CHLORIDE 20 MEQ ER TABLET PO ONE (07:30)
[2022-04-01 08:00] VITALS: BP 140/70
[2022-04-01] MEDS ORDERED: MAGNESIUM SULFATE 3 GM in DEXTROSE 5%-WATER 100 ML IV ONE (08:00)
[2022-04-01 08:26] LABS: GLUCOSE,POINT OF CARE 120 MG/DL (70-110)
[2022-04-01] MEDS: VANCOMYCIN HCL 1 GM in DEXTROSE 5%-WATER 250 ML IV SCH ×2 (08:30→20:00)
[2022-04-01] MEDS: MAGNESIUM SULFATE 4 GM/WATER 100 ML IV PRN ×2 (08:30→08:34)
[2022-04-01] MEDS: DOCUSATE SODIUM 100 MG CAPSULE PO SCH (08:31)
[2022-04-01] MEDS: QUEtiapine FUMARATE 25 MG TABLET NG SCH (08:31)
[2022-04-01] MEDS: BuPROPion HCL 75 MG TABLET NG SCH (08:31)
[2022-04-01] MEDS: ETHYL ALCOHOL 62% ANTISEPTIC NASAL SANITIZER 0.6 ML AMPUL NASAL SCH (08:31)
[2022-04-01] MEDS: RisperiDONE 3 MG TABLET PO SCH (08:31)
[2022-04-01] MEDS: FentaNYL 50 MCG/HOUR PATCH TD SCH (08:32)
[2022-04-01] MEDS: FUROSEMIDE 20 MG/2 ML VIAL IVP SCH (08:32)
[2022-04-01] MEDS: METOCLOPRAMIDE HCL 5 MG/ML 2 ML VIAL IVP SCH (08:33)
[2022-04-01] MEDS ORDERED: SODIUM CHLORIDE 0.9% 250 ML IV ONE ×2 (08:50→11:46)
[2022-04-01] MEDS ORDERED: BENZTROPINE MESYLATE 1 MG TABLET PO SCH (09:00)
[2022-04-01] MEDS ORDERED: DIVALPROEX SODIUM 500 MG DR TABLET PO SCH (09:00)
[2022-04-01] MEDS: PANTOPRAZOLE SODIUM 40 MG/VIAL IVP SCH (09:05)
[2022-04-01] MEDS: CHLORHEXIDINE GLUCONATE 0.12% 15 ML UDCUP ORAL RINSE MM SCH (09:06)
[2022-04-01] MEDS: LORazepam 1 MG TABLET PO SCH ×2 (09:08→16:05)
[2022-04-01] MEDS: ACETAMINOPHEN 325 MG TABLET PO PRN (10:03)
[2022-04-01] MEDS: POTASSIUM CHL 10 MEQ/WATER 50 ML IV SCH ×2 (11:42→11:43)
[2022-04-01 12:00] VITALS: BP 116/40
[2022-04-01 15:33] LABS: APPEARANCE,URINE CLEAR (CLEAR); BILIRUBIN,URINE NEGATIVE (NEGATIVE); GLUCOSE, URINE (UA) NEGATIVE (NEGATIVE); KETONES,URINE NEGATIVE (NEGATIVE); LEUKOCYTE ESTERASE ,URINE SMALL (NEGATIVE); NITRATE,URINE NEGATIVE (NEGATIVE); OCCULT BLOOD,URINE SMALL (NEGATIVE); PROTEIN,URINE TRACE mg/dL (NEGATIVE); SPECIFIC GRAVITIY, URINE 1.009 (1.003-1.030); UROBILINOGEN,URINE <=1.0 mg/dL (<=1.0)
[2022-04-01 15:56] LABS: BACTERIA,URINE Rare /HPF (None Seen)
[2022-04-01 15:58] LABS: RBC,URINE 0-2 /HPF (0-2); YEAST,URINE Many /HPF (None Seen)
[2022-04-01 16:00] VITALS: BP 168/110
[2022-04-01] MEDS ORDERED: CASPOFUNGIN ACETATE 70 MG in SODIUM CHLORIDE 0.9% 250 ML IV ONE (17:00)
[2022-04-01] MEDS: CefTRIAXone SODIUM 2 GM in DEXTROSE 5%-WATER 50 ML IV SCH (18:00)
[2022-04-01 18:21] LABS: GLUCOSE,POINT OF CARE 105 MG/DL (70-110)
[2022-04-01] MEDS: IPRATROPIUM BROMIDE 0.5 MG/2.5 ML NEB SOLUTION NEB PRN (18:31)
[2022-04-02 02:16] LABS: GLUCOSE,POINT OF CARE 125 MG/DL (70-110)
[2022-04-02] MEDS ORDERED: CASPOFUNGIN ACETATE 50 MG in SODIUM CHLORIDE 0.9% 250 ML IV SCH (17:00)
== END 2022-04-01 20:25 | DRG 5 ==
LOC: EDBD 16:38 → EMS 16:38 → ICUN 03-07 04:49 → ICU 03-07 17:57
PROVIDERS: ADMIT Internal Medicine; ATTEND Internal Medicine
PROC: 0BH17EZ Insertion of Endotracheal Airway into Trachea, Via Natural or Artificial Opening (ICD-10-PCS; 2022-03-07)
PROC: 5A12012 Performance of Cardiac Output, Single, Manual (ICD-10-PCS; 2022-03-07)
PROC: 06HY33Z Insertion of Infusion Device into Lower Vein, Percutaneous Approach (ICD-10-PCS; 2022-03-07)
PROC: B54BZZA Ultrasonography of Right Lower Extremity Veins, Guidance (ICD-10-PCS; 2022-03-07)
PROC: 5A1955Z Respiratory Ventilation, Greater than 96 Consecutive Hours (ICD-10-PCS; 2022-03-07)
PROC: 05HY33Z Insertion of Infusion Device into Upper Vein, Percutaneous Approach (ICD-10-PCS; 2022-03-08)
PROC: B54MZZA Ultrasonography of Right Upper Extremity Veins, Guidance (ICD-10-PCS; 2022-03-08)
PROC: 30233N1 Transfusion of Nonautologous Red Blood Cells into Peripheral Vein, Percutaneous Approach (ICD-10-PCS; 2022-03-18)
PROC: 0DJD8ZZ Inspection of Lower Intestinal Tract, Via Natural or Artificial Opening Endoscopic (ICD-10-PCS; 2022-03-20)
PROC: 0DB58ZX Excision of Esophagus, Via Natural or Artificial Opening Endoscopic, Diagnostic (ICD-10-PCS; 2022-03-20)
PROC: 0DB68ZX Excision of Stomach, Via Natural or Artificial Opening Endoscopic, Diagnostic (ICD-10-PCS; 2022-03-20)
PROC: 0DB98ZZ Excision of Duodenum, Via Natural or Artificial Opening Endoscopic (ICD-10-PCS; 2022-03-20)
PROC: 05H933Z Insertion of Infusion Device into Right Brachial Vein, Percutaneous Approach (ICD-10-PCS; 2022-03-22)
PROC: 5A1955Z Respiratory Ventilation, Greater than 96 Consecutive Hours (ICD-10-PCS; principal; 2022-03-27)
PROC: 0B113F4 Bypass Trachea to Cutaneous with Tracheostomy Device, Percutaneous Approach (ICD-10-PCS; 2022-03-27)
PROC: 0BJ08ZZ Inspection of Tracheobronchial Tree, Via Natural or Artificial Opening Endoscopic (ICD-10-PCS; 2022-03-27)
PROC: 0DH63UZ Insertion of Feeding Device into Stomach, Percutaneous Approach (ICD-10-PCS; 2022-03-29)
DX: A41.2 Sepsis due to unspecified staphylococcus (principal); N17.0 Acute kidney failure with tubular necrosis; I46.9 Cardiac arrest, cause unspecified; R65.21 Severe sepsis with septic shock; J69.0 Pneumonitis due to inhalation of food and vomit; G93.41 Metabolic encephalopathy; K22.11 Ulcer of esophagus with bleeding; T50.901A Poisoning by unspecified drugs, medicaments and biological substances, accidental (unintentional), initial encounter; J96.01 Acute respiratory failure with hypoxia; E87.4 Mixed disorder of acid-base balance; D62 Acute posthemorrhagic anemia; E87.0 Hyperosmolality and hypernatremia; J15.4 Pneumonia due to other streptococci; J90 Pleural effusion, not elsewhere classified; E83.42 Hypomagnesemia; Z99.11 Dependence on respirator [ventilator] status; E87.6 Hypokalemia; J98.11 Atelectasis; K56.41 Fecal impaction; K29.61 Other gastritis with bleeding; K44.9 Diaphragmatic hernia without obstruction or gangrene; K64.4 Residual hemorrhoidal skin tags; N39.0 Urinary tract infection, site not specified; F20.9 Schizophrenia, unspecified; F31.9 Bipolar disorder, unspecified; K62.6 Ulcer of anus and rectum; K81.1 Chronic cholecystitis; K82.8 Other specified diseases of gallbladder; J43.2 Centrilobular emphysema; Z20.822 Contact with and (suspected) exposure to COVID-19; D63.8 Anemia in other chronic diseases classified elsewhere; B96.20 Unspecified Escherichia coli [E. coli] as the cause of diseases classified elsewhere; D69.6 Thrombocytopenia, unspecified; Z88.0 Allergy status to penicillin; Z79.899 Other long term (current) drug therapy; Y92.89 Other specified places as the place of occurrence of the external cause
CPT/HCPCS: 31500; 31624; 36245; 36569; 36600; 70450; 71045; 71250; 71260; 72193; 74018; 74160; 76705; 76770; 76937; 78226; 80048; 80053; 80076; 80202; 81001; 82040; 82330; 82570; 82805; 82962; 83605; 83615; 83735; 83970; 84100; 84132; 84300; 84484; 84540; 85014; 85018; 85025; 85610; 85730; 86140; 86850; 86900; 86901; 86923; 87040; 87070; 87077; 87081; 87086; 87205; 87324; 87449; 87804; 87899; 88305; 88312; 88313; 88342; 93005; 93306; 93308; 93970; 94002; 94003; 94640; 95816; 99291; A9537; C9113; G0378; G0480; G0481; J0171; J0456; J0637; J0690; J0696; J0712; J1200; J1630; J1644; J1720; J1940; J1956; J2060; J2250; J2370; J2405; J2704; J2765; J3370; J3411; J3475; J3480; J3490; J7030; J7042; J7050; J7060; P9016; P9047; Q9967; 36415-L1; 36415-TC; J7613